=== PATIENT | male | born 1935 | race Caucasian/White ===

== ENCOUNTER 2018-01-17 10:00 | Emergency (ER) | payer MEDICARE, BC ==
[2018-01-17] MEDS ORDERED: SODIUM CHLORIDE 0.9% 1,000 ML IV STA (11:02)
[2018-01-17] MEDS ORDERED: MECLIZINE 12.5 MG TAB PO STA (11:02)
--- NOTE | 2018-01-17 11:06 | ED ---
Dizziness HPI - General Chief Complaint: Dizziness Stated Complaint: DIZZINESS, NEAR SYNCOPE Time Seen by Provider: 01/17/18 10:28 Source: patient, family, RN notes reviewed Mode of arrival: wheelchair Limitations: no limitations - History of Present Illness Initial Comments: This 82-year-old male with a prior history of dizziness in the past who states he had the onset this morning of feeling dizzy with some difficulty walking he states this happened when he would look up and down through his new bifocal glasses. He states it still occurs now even without his glasses on noted somewhat improved from earlier. He states that during the episode he felt chilled he also felt as if he was going to have a bowel movement or needed to. Right now he has of the symptoms he denies any fevers sweats vomiting diarrhea constipation palpitations focal weakness is upper or lower extremities. He denies any recent medicine change or recent illnesses. No other modifying factors MD Complaint: dizziness, lightheadedness, near syncope - Related Data Home Medications Medication Instructions Recorded Confirmed Lisinopril [Zestril] 1.25 mg PO DAILY 04/17/14 01/17/18 Omeprazole [PriLOSEC] 20 mg PO BID 04/17/14 01/17/18 Simvastatin [Zocor] 40 mg PO HS 04/17/14 01/17/18 Meloxicam [Mobic] 7.5 mg PO DAILY 01/17/18 01/17/18 Montelukast Sodium [Singulair] 10 mg PO DAILY 01/17/18 01/17/18 Tamsulosin HCl [Flomax] 0.4 mg PO BID 01/17/18 01/17/18 Previous Rx's Medication Instructions Recorded Meclizine [Antivert] 25 mg PO TID #20 tab 01/17/18 Allergies Allergy/AdvReac Type Severity Reaction Status Date / Time No Known Allergies Allergy Verified 01/17/18 11:27 Review of Systems ROS Statement: Those systems with pertinent positive or pertinent negative responses have been documented in the HPI. ROS Other: All systems not noted in ROS Statement are negative. Past Medical History Past Medical History: Asthma, Coronary Artery Disease (CAD), Diabetes Mellitus, GERD/Reflux, Hyperlipidemia, Hypertension, Osteoarthritis (OA), Prostate Disorder Additional Past Medical History / Comment(s): osteoarthritis History of Any Multi-Drug Resistant Organisms: None Reported Past Surgical History: Coronary Bypass/CABG, Heart Catheterization Additional Past Surgical History / Comment(s): CABG-3 vessels, pericaridal tissue heart valve, shelli. carpal tunnel repair Past Anesthesia/Blood Transfusion Reactions: No Reported Reaction Past Psychological History: No Psychological Hx Reported Smoking Status: Former smoker Past Alcohol Use History: None Reported Past Drug Use History: None Reported General Exam - General Exam Comments Initial Comments: This is a well-developed well-nourished awake alert oriented 3 male Limitations: no limitations General appearance: alert, in no apparent distress Head exam: Present: atraumatic, normocephalic, normal inspection Eye exam: Present: normal appearance, PERRL, EOMI. Absent: scleral icterus, conjunctival injection, periorbital swelling ENT exam: Present: normal exam, mucous membranes moist Neck exam: Present: normal inspection, full ROM, other (No stridor JVD or bruits ). Absent: tenderness, meningismus, lymphadenopathy Respiratory exam: Present: normal lung sounds bilaterally. Absent: respiratory distress, wheezes, rales, rhonchi, stridor Cardiovascular Exam: Present: regular rate, normal rhythm, normal heart sounds. Absent: systolic murmur, diastolic murmur, rubs, gallop, clicks GI/Abdominal exam: Present: soft, normal bowel sounds. Absent: distended, tenderness, guarding, rebound, rigid Extremities exam: Present: normal inspection, full ROM, normal capillary refill. Absent: tenderness, pedal edema, joint swelling, calf tenderness Back exam: Present: normal inspection Neurological exam: Present: alert, oriented X3, CN II-XII intact Psychiatric exam: Present: normal affect, normal mood Skin exam: Present: warm, dry, intact, normal color. Absent: rash Course Vital Signs 01/17/18 01/17/18 10:17 11:36 Temperature 97.4 F L Pulse Rate 87 Pulse Rate [ 67 Sitting] Pulse Rate [ 72 Standing] Pulse Rate [ 68 Supine] Respiratory 18 20 Rate Blood Pressure 150/67 Blood Pressure 153/76 [Sitting] Blood Pressure 152/76 [Standing] Blood Pressure 146/66 [Supine] O2 Sat by Pulse 98 Oximetry EKG Findings - EKG Results: EKG: interpreted by ERMD, sinus rhythm (Sinus rhythm first-degree AV block rate was 62. 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 Patient will be discharged he will be placed on a prescription for Antivert he was encouraged to increase his oral fluids follow-up with his doctor and return when necessary additionally he was cautioned about not driving today. - Lab Data Result diagrams: 01/17/18 11:59 01/17/18 11:59 Lab Results 01/17/18 01/17/18 01/17/18 Range/Units 11:59 11:59 11:59 WBC 8.2 (3.8-10.6) k/uL RBC 5.41 (4.30-5.90) m/uL Hgb 15.7 (13.0-17.5) gm/dL Hct 47.4 (39.0-53.0) % MCV 87.6 (80.0-100.0) fL MCH 29.0 (25.0-35.0) pg MCHC 33.2 (31.0-37.0) g/dL RDW 13.2 (11.5-15.5) % Plt Count 151 (150-450) k/uL Neutrophils % 79 % Lymphocytes % 13 % Monocytes % 6 % Eosinophils % 1 % Basophils % 0 % Neutrophils # 6.5 (1.3-7.7) k/uL Lymphocytes # 1.1 (1.0-4.8) k/uL Monocytes # 0.5 (0-1.0) k/uL Eosinophils # 0.1 (0-0.7) k/uL Basophils # 0.0 (0-0.2) k/uL Sodium 139 (137-145) mmol/L Potassium 4.3 (3.5-5.1) mmol/L Chloride 106 (98-107) mmol/L Carbon Dioxide 26 (22-30) mmol/L Anion Gap 7 mmol/L BUN 22 H (9-20) mg/dL Creatinine 0.92 (0.66-1.25) mg/dL Est GFR (CKD-EPI)AfAm 88 (>60 ml/min/1.73 sqM) Est GFR (CKD-EPI)NonAf 76 (>60 ml/min/1.73 sqM) Glucose 134 H (74-99) mg/dL Calcium 9.6 (8.4-10.2) mg/dL Magnesium 1.9 (1.6-2.3) mg/dL Total Bilirubin 0.6 (0.2-1.3) mg/dL AST 22 (17-59) U/L ALT 28 (21-72) U/L Alkaline Phosphatase 48 (38-126) U/L Total Creatine Kinase 89 (55-170) U/L CK-MB (CK-2) 1.8 (0.0-2.4) ng/mL CK-MB (CK-2) Rel Index 2.0 Troponin I <0.012 (0.000-0.034) ng/mL Total Protein 6.5 (6.3-8.2) g/dL Albumin 3.9 (3.5-5.0) g/dL Urine Color Urine Appearance (Clear) Urine pH (5.0-8.0) Ur Specific [place] (1.001-1.035) Urine Protein (Negative) Urine Glucose (UA) (Negative) Urine Ketones (Negative) Urine Blood (Negative) Urine Nitrite (Negative) Urine Bilirubin (Negative) Urine Urobilinogen (<2.0) mg/dL Ur Leukocyte Esterase (Negative) 01/17/18 Range/Units 12:35 WBC (3.8-10.6) k/uL RBC (4.30-5.90) m/uL Hgb (13.0-17.5) gm/dL Hct (39.0-53.0) % MCV (80.0-100.0) fL MCH (25.0-35.0) pg MCHC (31.0-37.0) g/dL RDW (11.5-15.5) % Plt Count (150-450) k/uL Neutrophils % % Lymphocytes % % Monocytes % % Eosinophils % % Basophils % % Neutrophils # (1.3-7.7) k/uL Lymphocytes # (1.0-4.8) k/uL Monocytes # (0-1.0) k/uL Eosinophils # (0-0.7) k/uL Basophils # (0-0.2) k/uL Sodium (137-145) mmol/L Potassium (3.5-5.1) mmol/L Chloride (98-107) mmol/L Carbon Dioxide (22-30) mmol/L Anion Gap mmol/L BUN (9-20) mg/dL Creatinine (0.66-1.25) mg/dL Est GFR (CKD-EPI)AfAm (>60 ml/min/1.73 sqM) Est GFR (CKD-EPI)NonAf (>60 ml/min/1.73 sqM) Glucose (74-99) mg/dL Calcium (8.4-10.2) mg/dL Magnesium (1.6-2.3) mg/dL Total Bilirubin (0.2-1.3) mg/dL AST (17-59) U/L ALT (21-72) U/L Alkaline Phosphatase (38-126) U/L Total Creatine Kinase (55-170) U/L CK-MB (CK-2) (0.0-2.4) ng/mL CK-MB (CK-2) Rel Index Troponin I (0.000-0.034) ng/mL Total Protein (6.3-8.2) g/dL Albumin (3.5-5.0) g/dL Urine Color Yellow Urine Appearance Clear (Clear) Urine pH 5.0 (5.0-8.0) Ur Specific [place] 1.015 (1.001-1.035) Urine Protein Negative (Negative) Urine Glucose (UA) Negative (Negative) Urine Ketones Trace H (Negative) Urine Blood Negative (Negative) Urine Nitrite Negative (Negative) Urine Bilirubin Negative (Negative) Urine Urobilinogen <2.0 (<2.0) mg/dL Ur Leukocyte Esterase Negative (Negative) - Radiology Data Radiology results: report reviewed (I did review the imaging and reports no acute findings.), image reviewed Disposition Clinical Impression: Benign paroxysmal positional vertigo, Dehydration Disposition: HOME SELF-CARE Condition: Good Instructions: Dizziness (ED), Benign Paroxysmal Positional Vertigo (ED), Dehydration (ED) Prescriptions: Meclizine [Antivert] 25 mg PO TID #20 tab Is patient prescribed a controlled substance at d/c from ED?: No Referrals: Alfredo Carbone MD [Primary Care Provider] - 1-2 days
[2018-01-17 12:17] LABS: Basophils % (A) 0 %; Eosinophils # (A) 0.1 k/uL (0-0.7); Eosinophils % (A) 1 %; HCT 47.4 % (39.0-53.0); HGB 15.7 gm/dL (13.0-17.5); Lymphocytes # (A) 1.1 k/uL (1.0-4.8); Lymphocytes % (A) 13 %; MCHC 33.2 g/dL (31.0-37.0); MCV 87.6 fL (80.0-100.0); Monocytes # (A) 0.5 k/uL (0-1.0); Monocytes % (A) 6 %; Neutrophils # (A) 6.5 k/uL (1.3-7.7); Neutrophils % (A) 79 %; Platelet Count 151 k/uL (150-450); RBC 5.41 m/uL (4.30-5.90); RDW 13.2 % (11.5-15.5); WBC 8.2 k/uL (3.8-10.6)
[2018-01-17 12:29] LABS: Albumin 3.9 g/dL (3.5-5.0); Calcium 9.6 mg/dL (8.4-10.2); Magnesium 1.9 mg/dL (1.6-2.3); Potassium 4.3 mmol/L (3.5-5.1); Total Bilirubin 0.6 mg/dL (0.2-1.3); Total Protein 6.5 g/dL (6.3-8.2)
[2018-01-17 12:42] LABS: Creatine Kinase 89 U/L (55-170)
[2018-01-17 12:56] LABS: Creatine Kinase MB 1.8 ng/mL (0.0-2.4); Troponin I <0.012 ng/mL (0.000-0.034)
[2018-01-17 13:03] LABS: Appearance,Urine Clear (Clear); Bilirubin,Urine Negative (Negative); Blood,Urine Negative (Negative); Color,Urine Yellow; Glucose,Urine (UA) Negative (Negative); Ketones,Urine Trace (Negative); Leukocyte Esterase,Urine Negative (Negative); Nitrite,Urine Negative (Negative); Protein,Urine Negative (Negative); Specific Gravity,Urine 1.015 (1.001-1.035); Urobilinogen,Urine <2.0 mg/dL (<2.0)
--- NOTE | 2018-01-17 13:18 | XR ---
EXAMINATION TYPE: XR chest 2V DATE OF EXAM: 01/17/2018 COMPARISON: 03/13/2010 INDICATION: Cough dizziness TECHNIQUE: Frontal and lateral views of the chest are obtained. FINDINGS: The heart size is normal. The pulmonary vasculature is normal. Minimal plate atelectasis above the left diaphragm. Some mild plate atelectasis may be in the right l ower lobe. Sternotomy wires from prior cardiac surgery are evident.. IMPRESSION: 1. Mild bibasilar atelectasis.
--- NOTE | 2018-01-17 13:25 | CT ---
EXAMINATION TYPE: CT brain wo con DATE OF EXAM: 01/17/2018 HISTORY: Dizziness, near syncope CT DLP: 1079.4 mGycm. Automated Exposure Control for Dose Reduction was Utilized. TECHNIQUE: CT scan of the head is performed without contrast. COMPARISON: None. FINDINGS: There is no acute intracranial hemorrhage or midline shift identified. There is diffuse v entricular and sulcal prominence consistent with diffuse age-related cerebral atrophy. There is low- attenuation in the periventricular white matter consistent with chronic small vessel ischemic change. The globes are intact and the visualized sinuses are clear. IMPRESSION: No acute intracranial hemorrhage or midline shift. There is mild to moderate diffuse ag e-related cerebral atrophy and chronic small vessel ischemic change noted.
[2018-01-17 13:48] VITALS: BP 133/71; PULSE 64; RESP 16; TEMP 97.8
== END 2018-01-17 13:53 | disposition home or self-care (01) ==
LOC: EC 10:00
DX: H81.10 Benign paroxysmal vertigo, unspecified ear (principal); E86.0 Dehydration; I25.10 Atherosclerotic heart disease of native coronary artery without angina pectoris; J45.909 Unspecified asthma, uncomplicated; K21.9 Gastro-esophageal reflux disease without esophagitis; E78.5 Hyperlipidemia, unspecified; I10 Essential (primary) hypertension; M19.90 Unspecified osteoarthritis, unspecified site; Z87.891 Personal history of nicotine dependence; Z95.1 Presence of aortocoronary bypass graft; Z95.2 Presence of prosthetic heart valve; Z98.890 Other specified postprocedural states; Z79.1 Long term (current) use of non-steroidal anti-inflammatories (NSAID); Z79.899 Other long term (current) drug therapy; N42.9 Disorder of prostate, unspecified
CPT/HCPCS: 36415; 70450; 71046; 80053; 81003; 82550; 82553; 83735; 84484; 85025; 93005; 96360; 99284

== ENCOUNTER 2019-11-22 15:35 | Inpatient (IN) | payer MEDICARE, BC ==
[2019-11-22] MEDS ORDERED: PIPERACILLIN-TAZOBACTAM 3.375 GM in SODIUM CHLORIDE 0.9% 100 ML IVPB STA (16:17)
[2019-11-22] MEDS ORDERED: SODIUM CHLORIDE 0.9% 1,000 ML IV STA (16:17)
[2019-11-22] MEDS ORDERED: VANCOMYCIN IV PER PHARMACY 1 EACH MISC MISCELLANE PRN (16:18)
[2019-11-22] MEDS ORDERED: VANCOMYCIN 1,500 MG in SODIUM CHLORIDE 0.9% 250 ML IVPB STA (16:22)
--- NOTE | 2019-11-22 16:38 | ED ---
General Adult HPI - General Chief complaint: Skin/Abscess/Foreign Body Stated complaint: R Foot Infection - Sent by PCP Time Seen by Provider: 11/22/19 15:39 Source: patient, RN notes reviewed, old records reviewed Mode of arrival: ambulatory Limitations: physical limitation - History of Present Illness Initial comments: 83-year-old male presenting with suspected infection in the right foot. Patient had been seen on outpatient basis approximately one week ago and was started on Keflex. He had a small superficial infection of the right second toe at that time. He states that despite these antibiotics he has had worsening swelling, erythema, warmth of the right second toe and right foot. Patient has had low- grade fevers at night. He states that this initially began as a small pimple on the top of the second toe. Patient had drained this and was soaking it in Epsom salts. Despite his treatment including oral antibiotics his swelling and erythema has significantly worsened. He was sent in today for IV antibiotics and further evaluation and treatment. - Related Data Home Medications Medication Instructions Recorded Confirmed Omeprazole [PriLOSEC] 20 mg PO BID 04/17/14 01/17/18 Simvastatin [Zocor] 40 mg PO HS 04/17/14 01/17/18 lisinopriL [Zestril] 1.25 mg PO DAILY 04/17/14 01/17/18 Meloxicam [Mobic] 7.5 mg PO DAILY 01/17/18 01/17/18 Montelukast Sodium [Singulair] 10 mg PO DAILY 01/17/18 01/17/18 Tamsulosin HCl [Flomax] 0.4 mg PO BID 01/17/18 01/17/18 Previous Rx's Medication Instructions Recorded Meclizine [Antivert] 25 mg PO TID #20 tab 01/17/18 Allergies Allergy/AdvReac Type Severity Reaction Status Date / Time No Known Allergies Allergy Verified 11/22/19 16:02 Review of Systems ROS Statement: Those systems with pertinent positive or pertinent negative responses have been documented in the HPI. ROS Other: All systems not noted in ROS Statement are negative. Past Medical History Past Medical History: Asthma, Coronary Artery Disease (CAD), Diabetes Mellitus, GERD/Reflux, Hyperlipidemia, Hypertension, Osteoarthritis (OA), Prostate Disorder Additional Past Medical History / Comment(s): osteoarthritis History of Any Multi-Drug Resistant Organisms: None Reported Past Surgical History: Coronary Bypass/CABG, Heart Catheterization Additional Past Surgical History / Comment(s): CABG-3 vessels, pericaridal tissue heart valve, shelli. carpal tunnel repair Past Anesthesia/Blood Transfusion Reactions: No Reported Reaction Past Psychological History: No Psychological Hx Reported Smoking Status: Never smoker Past Alcohol Use History: None Reported Past Drug Use History: None Reported General Exam Limitations: physical limitation General appearance: alert, in no apparent distress Head exam: Present: atraumatic, normocephalic Eye exam: Present: normal appearance, PERRL ENT exam: Present: normal exam Neck exam: Present: normal inspection. Absent: tenderness, meningismus Respiratory exam: Present: normal lung sounds bilaterally. Absent: respiratory distress, wheezes Cardiovascular Exam: Present: regular rate, normal rhythm GI/Abdominal exam: Present: soft. Absent: distended, tenderness, guarding Extremities exam: Present: other (Soft tissue swelling to the mid calf, there is erythema throughout the right foot extending from the second digit. There is skin breakdown and wet gangrene of the second digit.) Neurological exam: Present: alert, oriented X3 Psychiatric exam: Present: normal affect, normal mood Skin exam: Present: warm Course Vital Signs 11/22/19 15:59 Temperature 98.9 F Pulse Rate 84 Respiratory 20 Rate Blood Pressure 172/64 O2 Sat by Pulse 99 Oximetry Medical Decision Making - Medical Decision Making 83-year-old male with right foot infection extending from the second digit, magdalene lulitis, wet gangrene. X-ray negative for soft tissue gas, showed soft tissue swelling, ultrasound negative for DVT. Patient has a normal blood cell count but significant elevated CRP at 140. He started on broad-spectrum antibiotics he has been admitted to Dr. Carbone who is aware of the patient with both infectious disease and vascular surgery on consult. - Lab Data Result diagrams: 11/22/19 16:44 11/22/19 16:44 Lab Results 11/22/19 11/22/19 11/22/19 Range/Units 16:44 16:44 16:44 WBC 9.9 (3.8-10.6) k/uL RBC 5.11 (4.30-5.90) m/uL Hgb 15.5 (13.0-17.5) gm/dL Hct 46.3 (39.0-53.0) % MCV 90.6 (80.0-100.0) fL MCH 30.4 (25.0-35.0) pg MCHC 33.5 (31.0-37.0) g/dL RDW 12.9 (11.5-15.5) % Plt Count 191 (150-450) k/uL Neutrophils % 73 % Lymphocytes % 13 % Monocytes % 10 % Eosinophils % 2 % Basophils % 0 % Neutrophils # 7.2 (1.3-7.7) k/uL Lymphocytes # 1.3 (1.0-4.8) k/uL Monocytes # 1.0 (0-1.0) k/uL Eosinophils # 0.2 (0-0.7) k/uL Basophils # 0.0 (0-0.2) k/uL Sodium 138 (137-145) mmol/L Potassium 4.0 (3.5-5.1) mmol/L Chloride 103 (98-107) mmol/L Carbon Dioxide 27 (22-30) mmol/L Anion Gap 8 mmol/L BUN 21 H (9-20) mg/dL Creatinine 1.04 (0.66-1.25) mg/dL Est GFR (CKD-EPI)AfAm 76 (>60 ml/min/1.73 sqM) Est GFR (CKD-EPI)NonAf 66 (>60 ml/min/1.73 sqM) Glucose 132 H (74-99) mg/dL Plasma Lactic Acid Mike 1.0 (0.7-2.0) mmol/L Calcium 9.5 (8.4-10.2) mg/dL Total Bilirubin 0.6 (0.2-1.3) mg/dL AST 26 (17-59) U/L ALT 22 (4-49) U/L Alkaline Phosphatase 71 (38-126) U/L C-Reactive Protein 140.4 H (<10.0) mg/L Total Protein 6.5 (6.3-8.2) g/dL Albumin 3.7 (3.5-5.0) g/dL Disposition Clinical Impression: Cellulitis, Wet gangrene Disposition: ADMITTED IP TO [facility] Condition: Stable Is patient prescribed a controlled substance at d/c from ED?: No Referrals: Alfredo Carbone MD [Primary Care Provider] - 1-2 days Decision to Admit Reason: Admit from EC Decision Date: 11/22/19 Decision Time: 18:13
[2019-11-22 16:54] LABS: Basophils % (A) 0 %; Eosinophils # (A) 0.2 k/uL (0-0.7); Eosinophils % (A) 2 %; HCT 46.3 % (39.0-53.0); HGB 15.5 gm/dL (13.0-17.5); Lymphocytes # (A) 1.3 k/uL (1.0-4.8); Lymphocytes % (A) 13 %; MCH 30.4 pg (25.0-35.0); MCHC 33.5 g/dL (31.0-37.0); MCV 90.6 fL (80.0-100.0); Mean Platelet Volume 9.1; Monocytes % (A) 10 %; Neutrophils # (A) 7.2 k/uL (1.3-7.7); Neutrophils % (A) 73 %; Platelet Count 191 k/uL (150-450); RBC 5.11 m/uL (4.30-5.90); RDW 12.9 % (11.5-15.5); WBC 9.9 k/uL (3.8-10.6)
[2019-11-22 17:06] LABS: Albumin 3.7 g/dL (3.5-5.0); Calcium 9.5 mg/dL (8.4-10.2); Total Bilirubin 0.6 mg/dL (0.2-1.3); Total Protein 6.5 g/dL (6.3-8.2)
[2019-11-22 17:18] LABS: C Reactive Protein 140.4 mg/L (<10.0)
--- NOTE | 2019-11-22 17:21 | XR ---
EXAMINATION TYPE: XR foot complete RT DATE OF EXAM: 11/22/2019 COMPARISON: NONE HISTORY: Second digit infection TECHNIQUE: 3 views FINDINGS: There is soft tissue swelling of the forefoot. There is narrowing and spurring at the first MP joint. I see no fracture nor dislocation. There is no focal bone destruction. There is extensive vascular calcification. IMPRESSION: Soft tissue swelling. 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 No definite sign of osteomyel itis.
[2019-11-22] MEDS ORDERED: ACETAMINOPHEN TAB 325 MG TAB PO PRN (17:34)
[2019-11-22] MEDS ORDERED: NALOXONE 0.4 MG/ML 1 ML VIAL IV PRN (17:34)
--- NOTE | 2019-11-22 18:01 | US ---
EXAMINATION TYPE: US venous doppler duplex LE RT DATE OF EXAM: 11/22/2019 5:53 PM COMPARISON: NONE CLINICAL HISTORY: dvt. R/O DVT. No hx of DVT. Patient unsure if he takes a blood thinner. SIDE PERFORMED: Right TECHNIQUE: The lower extremity deep venous system is examined utilizing real time linear array sonog scott with graded compression, doppler sonography and color-flow sonography. VESSELS IMAGED: External Iliac Vein (EIV) Common Femoral Vein Deep Femoral Vein Greater Saphenous Vein * Femoral Vein Popliteal Vein Small Saphenous Vein * Proximal Calf Veins (* superficial vessels) Right Leg: No evidence of DVT in veins imaged at this time from prox calf veins to EIV. Hypoechoic a stevo seen within right groin measurin.4 x 2.4 x 1.0 cm. IMPRESSION: No evidence of deep vein thrombosis in the right leg. Right inguinal lymph node is noted
[2019-11-22] MEDS: TAMSULOSIN 0.4 MG CAP.ER.24H PO SCH (21:32)
[2019-11-22] MEDS: PIPERACILLIN-TAZOBACTAM 3.375 GM in SODIUM CHLORIDE 0.9% 100 ML IVPB SCH (23:44)
[2019-11-23] MEDS: PIPERACILLIN-TAZOBACTAM 3.375 GM in SODIUM CHLORIDE 0.9% 100 ML IVPB SCH ×2 (08:37→16:58)
[2019-11-23] MEDS: VANCOMYCIN 1,500 MG in SODIUM CHLORIDE 0.9% 250 ML IVPB SCH ×2 (08:37→23:04)
[2019-11-23] MEDS: PANTOPRAZOLE 40 MG TABLET PO SCH (08:37)
[2019-11-23] MEDS: TAMSULOSIN 0.4 MG CAP.ER.24H PO SCH ×2 (08:38→19:54)
[2019-11-23] MEDS: MONTELUKAST 10 MG TAB PO SCH (08:38)
--- NOTE | 2019-11-23 09:40 | P.GSCN ---
<Dana Skaggs - Last Filed: 11/23/19 09:31> History of Present Illness Consult date: 11/23/19 Reason for Consult: Cellulitis of the right foot History of present illness: 83-year-old male presenting with suspected infection in the right foot. Patient had been seen on outpatient basis approximately one week ago and was started on Keflex. He had a small superficial infection of the right second toe at that time. He states that despite these antibiotics he has had worsening swelling, erythema, warmth of the right second toe and right foot. Patient has had low- grade fevers at night. He states that this initially began as a small pimple on the top of the second toe. Patient had drained this and was soaking it in Epsom salts. Despite his treatment including oral antibiotics his swelling and erythema has significantly worsened. He was sent in for IV antibiotics and further evaluation and treatment. His past medical history includes asthma, coronary artery disease, diabetes mellitus, GERD, hyperlipidemia, hypertension, osteoarthritis and prostate disorder. Admission labs WBC 9.9, hemoglobin 15.5, hematocrit 46.3, platelets 191 BUN 21, creatinine 1.04, C-reactive protein 140.4. X-ray of the right foot showed soft tissue swelling. 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 No definite sign of osteomyelitis. Venous Doppler of the right lower extremity was negative for DVT, did show a right inguinal lymph node. Review of Systems 14 point review systems was completed, all pertinent positives and negatives as stated in the HPI. Past Medical History Past Medical History: Asthma, Coronary Artery Disease (CAD), Diabetes Mellitus, GERD/Reflux, Hyperlipidemia, Hypertension, Osteoarthritis (OA), Prostate Disorder Additional Past Medical History / Comment(s): osteoarthritis History of Any Multi-Drug Resistant Organisms: None Reported Past Surgical History: Coronary Bypass/CABG, Heart Catheterization Additional Past Surgical History / Comment(s): CABG-3 vessels, pericaridal tissue heart valve, shelli. carpal tunnel repair Past Anesthesia/Blood Transfusion Reactions: No Reported Reaction Past Psychological History: No Psychological Hx Reported Smoking Status: Never smoker Past Alcohol Use History: None Reported Past Drug Use History: None Reported Medications and Allergies Home Medications Medication Instructions Recorded Confirmed Type Omeprazole [PriLOSEC] 20 mg PO BID 04/17/14 11/22/19 History Simvastatin [Zocor] 40 mg PO HS 04/17/14 11/22/19 History lisinopriL [Zestril] 1.25 mg PO DAILY 04/17/14 11/22/19 History Meloxicam [Mobic] 7.5 mg PO BID 01/17/18 11/22/19 History Tamsulosin HCl [Flomax] 0.4 mg PO BID 01/17/18 11/22/19 History Cholecalciferol [Vitamin D3 (25 1,000 unit PO DAILY 11/22/19 11/22/19 History Mcg = 1000 Iu)] Montelukast [Singulair] 10 mg PO DAILY 11/22/19 11/22/19 History Allergies Allergy/AdvReac Type Severity Reaction Status Date / Time No Known Allergies Allergy Verified 11/22/19 18:21 Surgical - Exam Vital Signs Temp Pulse Resp BP Pulse Ox 98.9 F 84 20 172/64 99 11/22/19 15:59 11/22/19 15:59 11/22/19 15:59 11/22/19 15:59 11/22/19 15:59 General appearance: The patient is alert, oriented, in no acute distress. HET: Head is normocephalic and atraumatic. Pupils are equal and reactive. Oropharynx is clear without lesions. Neck: Supple without lymphadenopathy. Trachea midline. Heart: S1 S2. Regular rate and rhythm. Lungs: No crackles or wheezes are heard. Abdomen: Soft, nontender, nondistended with bowel sounds. Extremities: Bilateral palpable femoral and DP pulses, however right was faint likely due to swelling. Palpable left PT pulse, with no edema or erythema. Positive Doppler signals bilateral popliteal, right PT and DP. Right second toe with swelling, erythema, and with gangrenous changes along dorsal, medial and lateral aspects.. Significant erythema and swelling on dorsal side up to mid foot. Patient is able to move bilateral lower extremities. Neurological: No focal deficits. Strength and sensation are grossly intact. Results X-ray of the right foot shows soft tissue swelling. 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 No definite sign of osteomyelitis Venous Doppler of the right lower extremity was negative for DVT. There was a right inguinal lymph node. - Labs 11/22/19 16:44 11/22/19 16:44 Abnormal Lab Results - Last 24 Hours (Table) 11/22/19 Range/Units 16:44 BUN 21 H (9-20) mg/dL Glucose 132 H (74-99) mg/dL C-Reactive Protein 140.4 H (<10.0) mg/L Diabetes panel 11/22/19 Range/Units 16:44 Sodium 138 (137-145) mmol/L Potassium 4.0 (3.5-5.1) mmol/L Chloride 103 (98-107) mmol/L Carbon Dioxide 27 (22-30) mmol/L BUN 21 H (9-20) mg/dL Creatinine 1.04 (0.66-1.25) mg/dL Glucose 132 H (74-99) mg/dL Calcium 9.5 (8.4-10.2) mg/dL AST 26 (17-59) U/L ALT 22 (4-49) U/L Alkaline Phosphatase 71 (38-126) U/L Total Protein 6.5 (6.3-8.2) g/dL Albumin 3.7 (3.5-5.0) g/dL Calcium panel 11/22/19 Range/Units 16:44 Calcium 9.5 (8.4-10.2) mg/dL Albumin 3.7 (3.5-5.0) g/dL Pituitary panel 11/22/19 Range/Units 16:44 Sodium 138 (137-145) mmol/L Potassium 4.0 (3.5-5.1) mmol/L Chloride 103 (98-107) mmol/L Carbon Dioxide 27 (22-30) mmol/L BUN 21 H (9-20) mg/dL Creatinine 1.04 (0.66-1.25) mg/dL Glucose 132 H (74-99) mg/dL Calcium 9.5 (8.4-10.2) mg/dL Adrenal panel 11/22/19 Range/Units 16:44 Sodium 138 (137-145) mmol/L Potassium 4.0 (3.5-5.1) mmol/L Chloride 103 (98-107) mmol/L Carbon Dioxide 27 (22-30) mmol/L BUN 21 H (9-20) mg/dL Creatinine 1.04 (0.66-1.25) mg/dL Glucose 132 H (74-99) mg/dL Calcium 9.5 (8.4-10.2) mg/dL Total Bilirubin 0.6 (0.2-1.3) mg/dL AST 26 (17-59) U/L ALT 22 (4-49) U/L Alkaline Phosphatase 71 (38-126) U/L Total Protein 6.5 (6.3-8.2) g/dL Albumin 3.7 (3.5-5.0) g/dL Assessment and Plan Assessment: 1. Cellulitis of the right foot 2. Right second toe wound 3. Pain in the right foot 4. Diabetes mellitus 5. Coronary artery disease 6. Hypertension 7. Hyperlipidemia Plan: Continue with IV antibiotics per recommendation of infectious disease. Arterial Doppler study ordered. Dr. Kumar to further evaluate patient. Further recommendations to follow. Thank you for this kind referral and the opportunity to participate in the care of your patient. This consultation was discussed with Dr. Kumar. The impression and plan of care have been directed as dictated. <Kenneth Morales - Last Filed: 11/23/19 17:54> History of Present Illness History of present illness: The patient has a palpable femoral popliteal pulses on the right. Modest edema of the right foot is identified. Cellulitic reaction is noted along the dorsum of the foot. Unstageable skin slough is identified on the second toe of the right foot. The webspaces themselves are clean. There is no evidence of deep space abscess. Arterial Doppler demonstrates noncompressibility of vessels which leaves pressures unreliable. Pulse volume recording waveforms however demonstrate reasonably good flow along the entirety of the right lower extremity. Subjectively the patient indicates that the edema and erythema are subsiding with the current therapy. Recommendation: #1. I agree with currently instituted therapy including IV antibiotics and local wound care. #2. If the infectious process does not go on to complete resolution the patient would most likely benefit from a catheter angiogram with an eye toward percutaneous revascularization of the tibial vessels should this be possible based on the results of the angiogram. Alternatively the patient may be a good candidate for a lower extremity bypass, again dependent on the results of the angiogram. This further workup can be performed in the outpatient setting given the patient's objective indication of improvement. #3. I would like to follow the patient in the office as an outpatient. Surgical - Exam Osteopathic Statement: *. No significant issues noted on an osteopathic structural exam other than those noted in the History and Physical/Consult. Vital Signs Temp Pulse Resp BP Pulse Ox 98.9 F 84 20 172/64 99 10/15/20 15:59 11/22/19 15:59 11/22/19 15:59 11/22/19 15:59 11/22/19 15:59 Results - Labs 11/22/19 16:44 11/22/19 16:44
[2019-11-23] MEDS ORDERED: SODIUM HYPOCHLORITE 0.25% 480 ML BOT MISCELLANE SCH (15:45)
--- NOTE | 2019-11-23 15:49 | P.HPIM ---
History of Present Illness H&P Date: 11/23/19 Chief Complaint: Worsening Right foot cellulitis with second digit infection This is a pleasant 84-year-old gentleman with past medical history of asthma, CAD, CABG diabetes mellitus, gastroesophageal reflux disease, hypertension, hyperlipidemia, osteoarthritis presented to the ER with worsening right foot pain, cellulitis and second digit infection, low-grade fevers. Reports second digit initially started with a pimple appearance on the top of toe. Patient was started on oral Keflex approximately one week ago by PCP. He also attempted soaking foot with Epsom salts, but his extremity erythema/edema worsened. Patient was referred to ER . Antibiotics initiated. ID consulted. Evaluated by vascular surgery with arterial Doppler ordered. Afebrile, normal WBC. Hem atology unremarkable. Chemistry unremarkable with the exception of BUN 21, creatinine 1.4. Glucose 132. Elevated C-reactive protein,140.4. Foot x-ray reported soft tissue swelling, osteoarthritis of the first MP joint, no definite signs of osteomyelitis. Venous Doppler reported no DVT of the right leg, right inguinal lymph node noted-hyper echoic area within right groin measuring 3.4 x 2.4 x 1 cm. Review of Systems Constitutional: Denied any fatigue , mild nighttime fevers. Cardio vascular: denied any chest pain, palpitations Gastrointestinal denied any nausea vomiting Pulmonary: Denied any shortness of breath cough Neurologic denied any new focal deficits ROS Statement: Those systems with pertinent positive or pertinent negative responses have been documented in the HPI. ROS Other: All systems not noted in ROS Statement are negative. Past Medical History Past Medical History: Asthma, Coronary Artery Disease (CAD), Diabetes Mellitus, GERD/Reflux, Hyperlipidemia, Hypertension, Osteoarthritis (OA), Prostate Disorder Additional Past Medical History / Comment(s): osteoarthritis History of Any Multi-Drug Resistant Organisms: None Reported Past Surgical History: Coronary Bypass/CABG, Heart Catheterization Additional Past Surgical History / Comment(s): CABG-3 vessels, pericaridal tissue heart valve, shelli. carpal tunnel repair Past Anesthesia/Blood Transfusion Reactions: No Reported Reaction Past Psychological History: No Psychological Hx Reported Smoking Status: Never smoker Past Alcohol Use History: None Reported Past Drug Use History: None Reported Medications and Allergies Home Medications Medication Instructions Recorded Confirmed Type Omeprazole [PriLOSEC] 20 mg PO BID 04/17/14 11/22/19 History Simvastatin [Zocor] 40 mg PO HS 04/17/14 11/22/19 History lisinopriL [Zestril] 1.25 mg PO DAILY 04/17/14 11/22/19 History Meloxicam [Mobic] 7.5 mg PO BID 01/17/18 11/22/19 History Tamsulosin HCl [Flomax] 0.4 mg PO BID 01/17/18 11/22/19 History Cholecalciferol [Vitamin D3 (25 1,000 unit PO DAILY 11/22/19 11/22/19 History Mcg = 1000 Iu)] Montelukast [Singulair] 10 mg PO DAILY 11/22/19 11/22/19 History Allergies Allergy/AdvReac Type Severity Reaction Status Date / Time No Known Allergies Allergy Verified 11/22/19 18:21 Physical Exam Vitals: Vital Signs Temp Pulse Pulse Resp BP BP BP 11/23/19 05:00 97.8 F 61 18 158/70 11/23/19 00:10 16 11/22/19 19:59 98.3 F 80 16 159/65 11/22/19 19:20 16 11/22/19 19:00 98.9 F 72 18 150/78 11/22/19 18:02 72 18 150/78 11/22/19 17:02 18 11/22/19 15:59 98.9 F 84 20 172/64 Pulse Ox 11/23/19 05:00 96 11/23/19 00:10 11/22/19 19:59 95 11/22/19 19:20 11/22/19 19:00 98 11/22/19 18:02 98 11/22/19 17:02 97 11/22/19 15:59 99 Intake and Output 11/22/19 11/23/19 11/23/19 22:59 06:59 14:59 Intake Total 260 360 Balance 260 360 Intake: Intake, IV Titration 260 360 Amount Piperacillin-Tazobactam 3 100 .375 gm In Sodium Chloride 0.9% 100 ml @ 25 mls/hr IVPB Q8HR N[facility] Rx# :[id number] Sodium Chloride 0.9% 1, 260 260 000 ml @ 130 mls/hr IV . Q7H42M STA Rx#:[id number] Other: Voiding Method Toilet Toilet Urinal Urinal # Voids 1 Weight 81.647 kg PHYSICAL EXAM: VITAL SIGNS: As above GENERAL: Sitting up in bed, no acute distress HEENT: Conjunctivae normal. eyes normal. NECK: No JVD. No thyroid enlargement. No LNs CARDIOVASCULAR: S1, S2 regular. No murmur RESPIRATION: Breath sounds diminished in the bases. No rhonchi or crackles. No bronchial breathing. ABDOMEN: Soft, nontender . No guarding. no masses palpable. Positive Bowel sounds. EXTREMITIES: Right lower leg to dorsal mid-foot edema, erythema, edema with second digit gangrenous/blackened changes. Positive faint palpable DP. PSYCHIATRY: Alert and oriented X3, mood and affect normal. NERVOUS SYSTEM: Cranial N 2-12 grossly normal. Moves all 4 limbs. Diffuse weakness No focal deficits. Strength and sensation grossly intact.. Skin: Warm and dry, no rash Lymphatic system. No LN neck axilla. Results CBC & Chem 7: 11/22/19 16:44 11/22/19 16:44 Labs: Abnormal Lab Results - Last 24 Hours (Table) 11/22/19 Range/Units 16:44 BUN 21 H (9-20) mg/dL Glucose 132 H (74-99) mg/dL C-Reactive Protein 140.4 H (<10.0) mg/L Thrombosis Risk Factor Assmnt - Choose All That Apply Any of the Below Risk Factors Present?: Yes Each Factor Represents 1 point: Obesity (BMI >25), Swollen legs (current) Other Risk Factors: Yes Each Risk Factor Represents 3 Points: Age 75 years or older Other congenital or acquired thrombophilia - If yes, enter type in comment: No Thrombosis Risk Factor Assessment Total Risk Factor Score: 5 Thrombosis Risk Factor Assessment Level: High Risk Assessment and Plan Assessment: Cellulitis of right foot with second digit infection, failed outpatient treatment Diabetes mellitus CAD, history of CABG Hypertension hyperlipidemia Chronic intermittent asthma, stable Plan: Continue on current medication regime ,monitoring and symptomatic treatment. Wound care as ordered with Dakin's half-strength wash, Silvadene dressing. Elevated affected extremity .IV antibiotics as per infectious disease. Arterial Doppler pending. Follow closely with vascular surgery and ID. The impression and plan of care has been dictated as directed. : I performed a history and examination of this patient, discussed the same with the dictator. I agree with the dictator's note ,documented as a scribe. Any additional findings or plans will be noted.
[2019-11-23] MEDS: SODIUM HYPOCHLORITE 0.25% 480 ML BOT MISCELLANE SCH (17:55)
--- NOTE | 2019-11-23 23:51 | P.CONS ---
History of Present Illness - Reason for Consult Consult date: 11/23/19 Right foot infection Requesting physician: Alfredo Carbone - Chief Complaint Right foot swelling and redness x 1 week - History of Present Illness Patient is 83 year old male presenting to the hospital yesterday afternoon for evaluation of right foot infection apparently the patient noticed to have right second toe was swollen and red without any history of any trauma patient apparently has been evaluated by his primary care physician has been treated with oral Keflex without any improvement patient did have worsening swelling redness and some discussion of his right second toe patient did have mild aching pain to the area especially when he walks on it with intensity about 4 out of 10 and no radiation subsequently noticed swelling redness extending to the posterior aspect of his right foot that concern him and the patient presented to the hospital on arrival to the ER, patient was afebrile did have a normal white count with elevated CRP patient did have x-rays of the foot with tissue soft tissue swelling no definite signs of osteomyelitis patient was started on vancomycin and Zosyn infectious disease was consulted for further management of antibiotic therapy Review of Systems Positive point has been mentioned in the HPI rest of the systems are negative Past Medical History Past Medical History: Asthma, Coronary Artery Disease (CAD), Diabetes Mellitus, GERD/Reflux, Hyperlipidemia, Hypertension, Osteoarthritis (OA), Prostate Disorder Additional Past Medical History / Comment(s): osteoarthritis History of Any Multi-Drug Resistant Organisms: None Reported Past Surgical History: Coronary Bypass/CABG, Heart Catheterization Additional Past Surgical History / Comment(s): CABG-3 vessels, pericaridal tissue heart valve, shelli. carpal tunnel repair Past Anesthesia/Blood Transfusion Reactions: No Reported Reaction Past Psychological History: No Psychological Hx Reported Smoking Status: Never smoker Past Alcohol Use History: None Reported Past Drug Use History: None Reported Medications and Allergies Home Medications Medication Instructions Recorded Confirmed Type Omeprazole [PriLOSEC] 20 mg PO BID 04/17/14 11/22/19 History Simvastatin [Zocor] 40 mg PO HS 04/17/14 11/22/19 History lisinopriL [Zestril] 1.25 mg PO DAILY 04/17/14 11/22/19 History Meloxicam [Mobic] 7.5 mg PO BID 01/17/18 11/22/19 History Tamsulosin HCl [Flomax] 0.4 mg PO BID 01/17/18 11/22/19 History Cholecalciferol [Vitamin D3 (25 1,000 unit PO DAILY 11/22/19 11/22/19 History Mcg = 1000 Iu)] Montelukast [Singulair] 10 mg PO DAILY 11/22/19 11/22/19 History Allergies Allergy/AdvReac Type Severity Reaction Status Date / Time No Known Allergies Allergy Verified 11/22/19 18:21 Physical Exam Vitals: Vital Signs Temp Pulse Pulse Resp BP BP BP 11/23/19 12:51 98.2 F 61 16 121/62 11/23/19 05:00 97.8 F 61 18 158/70 11/23/19 00:10 16 11/22/19 19:59 98.3 F 80 16 159/65 11/22/19 19:20 16 11/22/19 19:00 98.9 F 72 18 150/78 11/22/19 18:02 72 18 150/78 11/22/19 17:02 18 11/22/19 15:59 98.9 F 84 20 172/64 Pulse Ox 11/23/19 12:51 96 11/23/19 05:00 96 11/23/19 00:10 11/22/19 19:59 95 11/22/19 19:20 11/22/19 19:00 98 11/22/19 18:02 98 11/22/19 17:02 97 11/22/19 15:59 99 Intake and Output 11/22/19 11/23/19 11/23/19 22:59 06:59 14:59 Intake Total 260 360 Balance 260 360 Intake: Intake, IV Titration 260 360 Amount Piperacillin-Tazobactam 3 100 .375 gm In Sodium Chloride 0.9% 100 ml @ 25 mls/hr IVPB Q8HR [facility] Rx# :[id number] Sodium Chloride 0.9% 1, 260 260 000 ml @ 130 mls/hr IV . Q7H42M [facility]A Rx#:[id number] Other: Voiding Method Toilet Toilet Urinal Urinal # Voids 1 Weight 81.647 kg GENERAL DESCRIPTION: An elderly male lying in bed, no distress. No tachypnea or accessory muscle of respiration use. HEENT: Shows Pallor , no scleral icterus. Oral mucous membrane is dry. No pharyngeal erythema or thrush NECK: Trachea central, no thyromegaly. LUNGS: Unlabored breathing. Clear to auscultation anteriorly. No wheeze or crackle. HEART: S1, S2, regular rate and rhythm. No loud murmur ABDOMEN: Soft, no tenderness , guarding or rigidity, no organomegaly EXTREMITIES: Right foot second toe significant swollen and red and discolored with some redness on the dorsal aspect of the right foot. SKIN: No rash, no masses palpable. NEUROLOGICAL: The patient is awake, alert, oriented x3, mood and affect normal. Results CBC & Chem 7: 11/22/19 16:44 11/22/19 16:44 Labs: Abnormal Lab Results - Last 24 Hours (Table) 11/22/19 Range/Units 16:44 BUN 21 H (9-20) mg/dL Glucose 132 H (74-99) mg/dL C-Reactive Protein 140.4 H (<10.0) mg/L Assessment and Plan Assessment: 1- patient with right foot infection and especially involving his right second toe with secondary cellulitis of the right foot failing outpatient oral Keflex therapy features are more of a wet gangrene and may need extensive debridement versus amputation of his right second toe for which vascular surgery has been consulted (1) Cellulitis of right foot Current Visit: Yes Status: Acute Code(s): L03.115 - CELLULITIS OF RIGHT LOWER LIMB SNOMED Code(s): 771430316 (2) Wet gangrene Current Visit: Yes Status: Acute Code(s): I96 - GANGRENE, NOT ELSEWHERE CLASSIFIED SNOMED Code(s): 631957403 Plan: 1-Vancomycin pharmacy to dose target trough of 15 while watching kidney function and Vanco trough closely 2-discontinue Zosyn and Unasyn 3 g every 6 hours We will follow on clinical condition and cultures to further adjust medication if needed Thank you for this consultation will follow this patient with you Time with Patient: Greater than 30
[2019-11-24] MEDS: AMPICILLIN-SULBACTAM 3 GM in SODIUM CHLORIDE 0.9% 100 ML IVPB SCH ×5 (00:17→23:34)
[2019-11-24 07:04] LABS: Basophils % (A) 0 %; Eosinophils # (A) 0.4 k/uL (0-0.7); Eosinophils % (A) 4 %; HCT 43.1 % (39.0-53.0); HGB 13.9 gm/dL (13.0-17.5); Lymphocytes # (A) 1.6 k/uL (1.0-4.8); Lymphocytes % (A) 18 %; MCH 29.3 pg (25.0-35.0); MCHC 32.2 g/dL (31.0-37.0); Mean Platelet Volume 8.7; Monocytes # (A) 0.9 k/uL (0-1.0); Monocytes % (A) 10 %; Neutrophils # (A) 5.7 k/uL (1.3-7.7); Neutrophils % (A) 65 %; Platelet Count 214 k/uL (150-450); RBC 4.74 m/uL (4.30-5.90); RDW 13.1 % (11.5-15.5); WBC 8.7 k/uL (3.8-10.6)
[2019-11-24 09:08] LABS: African American GFR (CKD) 89.3 (60.0-200.0); BUN/Creat Ratio 15.56 Ratio (12.00-20.00); Calcium 8.9 mg/dL (8.7-10.3); Non-African American GFR(CKD) 77.1 (60.0-200.0); Potassium 4.2 mmol/L (3.5-5.5)
[2019-11-24] MEDS: MONTELUKAST 10 MG TAB PO SCH (09:44)
[2019-11-24] MEDS: PANTOPRAZOLE 40 MG TABLET PO SCH (09:44)
[2019-11-24] MEDS: TAMSULOSIN 0.4 MG CAP.ER.24H PO SCH ×2 (09:44→20:19)
[2019-11-24] MEDS: SODIUM HYPOCHLORITE 0.25% 480 ML BOT MISCELLANE SCH (09:54)
--- NOTE | 2019-11-24 10:06 | P.PN ---
Subjective This is a pleasant 84-year-old gentleman with past medical history of asthma, CAD, CABG diabetes mellitus, gastroesophageal reflux disease, hypertension, hyperlipidemia, osteoarthritis presented to the ER with worsening right foot pain, cellulitis and second digit infection, low-grade fevers. Reports second digit initially started with a pimple appearance on the top of toe. Patient was started on oral Keflex approximately one week ago by PCP. He also attempted soaking foot with Epsom salts, but his extremity erythema/edema worsened. Patient was referred to ER . Antibiotics initiated. ID consulted. Evaluated by vascular surgery with arterial Doppler ordered. Afebrile, normal WBC. Hematology unremarkable. Chemistry unremarkable with the exception of BUN 21, creatinine 1.4. Glucose 132. Elevated C-reactive protein,140.4. Foot x-ray reported soft tissue swelling, osteoarthritis of the first MP joint, no definite signs of osteomyelitis. Venous Doppler reported no DVT of the right leg, right inguinal lymph node noted-hyper echoic area within right groin measuring 3.4 x 2.4 x 1 cm. 11/24/2019: Basilar surgery seen the patient and is not planning any debridement. Arterial studies showed good circulation up to the level of the ankle. The erythema in his toe and dorsal foot are improved. Infectious disease has seen him and he remains on vancomycin, and Unasyn.. He denies any chest pains, pressures, or shortness of breath today. He is tolerating his diet. He denies any nausea or vomiting. He has not had a bowel movement past 24 hours. Blood cultures remain negative. He has local wound care with Silvadene cream, Curlex dressing and Juan wrap for edema control. Dakin solution to clean the wound and dressing changes. Objective - Vital Signs Vital signs: Vital Signs Temp 97.7 F 11/24/19 05:48 Pulse 63 11/24/19 05:48 Resp 18 11/24/19 05:48 BP 133/64 11/24/19 05:48 Pulse Ox 94 L 11/24/19 05:48 Intake & Output 11/23/19 11/24/19 11/24/19 18:59 06:59 18:59 Intake Total 890 480 Output Total 1700 Balance -810 480 Intake: Intake, IV Titration 490 Amount Ampicillin-Sulbactam 3 gm 200 In Sodium Chloride 0.9% 100 ml @ 200 mls/hr IVPB Q6HR [facility] Rx#:[id number] Sodium Chloride 0.9% 1, 40 000 ml @ 130 mls/hr IV . Q7H42M [facility] Rx#:[id number] Vancomycin 1,500 mg In 250 Sodium Chloride 0.9% 250 ml @ 125 mls/hr IVPB Q16H [facility] Rx#:[id number] Oral 400 480 Output: Urine 1700 Other: Voiding Method Toilet Toilet Urinal Urinal # Voids 3 - Exam GENERAL: Sitting up in bed, no acute distress HEENT: Conjunctivae normal. eyes normal. NECK: No JVD. No thyroid enlargement. No LNs CARDIOVASCULAR: S1, S2 regular. No murmur RESPIRATION: Breath sounds diminished in the bases. No rhonchi or crackles. No bronchial breathing. ABDOMEN: Soft, nontender . No guarding. no masses palpable. Positive Bowel sounds. EXTREMITIES: Right lower leg to dorsal mid-foot edema, erythema, edema with second digit gangrenous/blackened changes. Positive faint palpable DP. The overall erythema is improved to the foot. PSYCHIATRY: Alert and oriented X3, mood and affect normal. NERVOUS SYSTEM: Cranial N 2-12 grossly normal. Moves all 4 limbs. Diffuse weakness No focal deficits. Strength and sensation grossly intact.. Skin: Warm and dry, no rash Lymphatic system. No LN neck axilla. - Labs CBC & Chem 7: 11/24/19 06:41 11/24/19 06:41 Labs: Abnormal Lab Results - Last 24 Hours (Table) 11/24/19 Range/Units 06:41 Glucose 122 H (70-110) mg/dL Microbiology - Last 24 Hours (Table) 11/22/19 16:44 Blood Culture - Preliminary Blood No Growth after 24 hours Assessment and Plan (1) Essential (primary) hypertension Current Visit: Yes Status: Acute Code(s): I10 - ESSENTIAL (PRIMARY) HYPERTENSION SNOMED Code(s): 34498136 (2) BPH (benign prostatic hyperplasia) Current Visit: Yes Status: Acute Code(s): N40.0 - BENIGN PROSTATIC HYPERPLASIA WITHOUT LOWER URINRY TRACT SYMP SNOMED Code(s): 817618637 (3) Type 2 diabetes mellitus without complications Current Visit: Yes Status: Acute Code(s): E11.9 - TYPE 2 DIABETES MELLITUS WITHOUT COMPLICATIONS SNOMED Code(s): 883004590 (4) Cellulitis of right foot Current Visit: Yes Status: Acute Code(s): L03.115 - CELLULITIS OF RIGHT LOWER LIMB SNOMED Code(s): 828129350 (5) Wet gangrene Current Visit: Yes Status: Acute Code(s): I96 - GANGRENE, NOT ELSEWHERE CLASSIFIED SNOMED Code(s): 707215612 (6) GERD (gastroesophageal reflux disease) Current Visit: No Status: Acute Code(s): K21.9 - GASTRO-ESOPHAGEAL REFLUX DISEASE WITHOUT ESOPHAGITIS SNOMED Code(s): 800209913 Plan: Continue on current medication regime ,monitoring and symptomatic treatment. Wound care as ordered with Dakin's half-strength wash, Silvadene dressing. Elevated affected extremity .IV antibiotics as per infectious disease. Arterial Doppler hard copy pending. Follow closely with vascular surgery and ID. We'll repeat labs in am. Reevaluated next 24 hours.
[2019-11-24] MEDS: VANCOMYCIN 1,500 MG in SODIUM CHLORIDE 0.9% 250 ML IVPB SCH (16:47)
--- NOTE | 2019-11-24 23:57 | PN ---
PROGRESS NOTE DATE OF SERVICE: 11/24/2019 REASON FOR FOLLOWUP: Right second toe wet gangrene and cellulitis. INTERVAL HISTORY: Patient is currently afebrile. The patient is breathing comfortably. Overall pain and discomfort to the right foot is slightly decreased. No chest pain or cough. No abdominal pain or diarrhea. PHYSICAL EXAMINATION: Blood pressure 151/67, pulse of 68, temperature 97.7. He is 95% on room air. General description: The patient is an elderly male lying in bed in no distress. Respiratory system: Unlabored breathing, clear to auscultation anteriorly. Heart S1, S2. Regular rate and rhythm. Right foot is currently dressed up. No obvious drainage on the dressing. LABS: Hemoglobin 13.1, white count 8.7, creatinine 0.9. Blood culture negative. No local cultures were done. DIAGNOSTIC IMPRESSION AND PLAN: Patient with right second toe redness and foot cellulitis and the patient did seem to have some clinical improvement. He will try to obtain cultures at the time of dressing changes. Continue with cefepime and vancomycin and monitor clinical course closely. MMODL / IJN: [id number] /
[2019-11-25 00:25] LABS: Hemoglobin A1C 6.5 % (4.0-6.0)
[2019-11-25] MEDS: AMPICILLIN-SULBACTAM 3 GM in SODIUM CHLORIDE 0.9% 100 ML IVPB SCH ×4 (05:52→23:21)
[2019-11-25] MEDS ORDERED: VANCOMYCIN TROUGH DUE 1 EACH MISC MISCELLANE ONE (07:00)
[2019-11-25 07:30] LABS: Basophils # (A) 0.1 k/uL (0-0.2); Basophils % (A) 1 %; Eosinophils # (A) 0.4 k/uL (0-0.7); Eosinophils % (A) 5 %; HCT 47.2 % (39.0-53.0); HGB 14.9 gm/dL (13.0-17.5); Lymphocytes # (A) 1.9 k/uL (1.0-4.8); Lymphocytes % (A) 20 %; MCH 28.8 pg (25.0-35.0); MCHC 31.6 g/dL (31.0-37.0); MCV 91.3 fL (80.0-100.0); Mean Platelet Volume 8.4; Monocytes % (A) 10 %; Neutrophils % (A) 63 %; Platelet Count 239 k/uL (150-450); RBC 5.17 m/uL (4.30-5.90); RDW 13.1 % (11.5-15.5); WBC 9.6 k/uL (3.8-10.6)
[2019-11-25] MEDS: VANCOMYCIN 1,500 MG in SODIUM CHLORIDE 0.9% 250 ML IVPB SCH (08:25)
[2019-11-25] MEDS: PANTOPRAZOLE 40 MG TABLET PO SCH (08:27)
[2019-11-25] MEDS: TAMSULOSIN 0.4 MG CAP.ER.24H PO SCH ×2 (08:28→20:19)
[2019-11-25] MEDS: SODIUM HYPOCHLORITE 0.25% 480 ML BOT MISCELLANE SCH (08:28)
[2019-11-25] MEDS: MONTELUKAST 10 MG TAB PO SCH (08:28)
--- NOTE | 2019-11-25 10:51 | P.PN ---
Subjective This is a pleasant 84-year-old gentleman with past medical history of asthma, CAD, CABG diabetes mellitus, gastroesophageal reflux disease, hypertension, hyperlipidemia, osteoarthritis presented to the ER with worsening right foot pain, cellulitis and second digit infection, low-grade fevers. Reports second digit initially started with a pimple appearance on the top of toe. Patient was started on oral Keflex approximately one week ago by PCP. He also attempted soaking foot with Epsom salts, but his extremity erythema/edema worsened. Patient was referred to ER . Antibiotics initiated. ID consulted. Evaluated by vascular surgery with arterial Doppler ordered. Afebrile, normal WBC. Hematology unremarkable. Chemistry unremarkable with the exception of BUN 21, creatinine 1.4. Glucose 132. Elevated C-reactive protein,140.4. Foot x-ray reported soft tissue swelling, osteoarthritis of the first MP joint, no definite signs of osteomyelitis. Venous Doppler reported no DVT of the right leg, right inguinal lymph node noted-hyper echoic area within right groin measuring 3.4 x 2.4 x 1 cm. 11/24/2019: Basilar surgery seen the patient and is not planning any debridement. Arterial studies showed good circulation up to the level of the ankle. The erythema in his toe and dorsal foot are improved. Infectious disease has seen him and he remains on vancomycin, and Unasyn.. He denies any chest pains, pressures, or shortness of breath today. He is tolerating his diet. He denies any nausea or vomiting. He has not had a bowel movement past 24 hours. Blood cultures remain negative. He has local wound care with Silvadene cream, Curlex dressing and Juan wrap for edema control. Dakin solution to clean the wound and dressing changes. 11/25/2019: Patient is without major complaints today. His wound was examined and the erythema seems to be worse today. They swab culture was obtained earlier today. He remains on Unasyn and vancomycin for antibiotic coverage. He has Dakin solution and dressing changes and Silvadene cream applied every 12 hourly to the affected area. Infectious disease and vascular surgery are following him. He denies any chest pains, pressures, shortness breath. He denies any nausea vomiting. His hemoglobin A1c was 6.5. Objective - Vital Signs Vital signs: Vital Signs Temp 97.8 F 11/25/19 05:26 Pulse 67 11/25/19 05:26 Resp 17 11/25/19 05:26 BP 158/76 11/25/19 05:26 Pulse Ox 95 11/25/19 05:26 Intake & Output 11/24/19 11/25/19 11/25/19 18:59 06:59 18:59 Intake Total 480 400 220 Balance 480 400 220 Intake: Intake, IV Titration 100 Amount Ampicillin-Sulbactam 3 gm 100 In Sodium Chloride 0.9% 100 ml @ 200 mls/hr IVPB Q6HR [facility] Rx#:[id number] Oral 480 300 220 Other: Voiding Method Toilet Toilet Urinal Urinal # Voids 2 1 # Bowel Movements 1 - Exam GENERAL: Sitting up in bed, no acute distress HEENT: Conjunctivae normal. eyes normal. NECK: No JVD. No thyroid enlargement. No LNs CARDIOVASCULAR: S1, S2 regular. No murmur RESPIRATION: Breath sounds diminished in the bases. No rhonchi or crackles. No bronchial breathing. ABDOMEN: Soft, nontender . No guarding. no masses palpable. Positive Bowel sounds. EXTREMITIES: Right lower leg to dorsal mid-foot edema, erythema, edema with second digit gangrenous/blackened changes. Positive faint palpable DP. The overall erythema appears worsened today. PSYCHIATRY: Alert and oriented X3, mood and affect normal. NERVOUS SYSTEM: Cranial N 2-12 grossly normal. Moves all 4 limbs. Diffuse weakness No focal deficits. Strength and sensation grossly intact.. Skin: Warm and dry, no rash Lymphatic system. No LN neck axilla. - Labs CBC & Chem 7: 11/25/19 06:58 11/24/19 06:41 Labs: Abnormal Lab Results - Last 24 Hours (Table) 11/24/19 Range/Units 10:23 Hemoglobin A1c 6.5 H (4.0-6.0) % Microbiology - Last 24 Hours (Table) 11/22/19 16:44 Blood Culture - Preliminary Blood No Growth after 48 hours Assessment and Plan (1) Essential (primary) hypertension Current Visit: Yes Status: Acute Code(s): I10 - ESSENTIAL (PRIMARY) HYPERTENSION SNOMED Code(s): 10966247 (2) BPH (benign prostatic hyperplasia) Current Visit: Yes Status: Acute Code(s): N40.0 - BENIGN PROSTATIC HYP ERPLASIA WITHOUT LOWER URINRY TRACT SYMP SNOMED Code(s): 681613181 (3) Type 2 diabetes mellitus without complications Current Visit: Yes Status: Acute Code(s): E11.9 - TYPE 2 DIABETES MELLITUS WITHOUT COMPLICATIONS SNOMED Code(s): 546995477 (4) Cellulitis of right foot Current Visit: Yes Status: Acute Code(s): L03.115 - CELLULITIS OF RIGHT LOWER LIMB SNOMED Code(s): 248065410 (5) Wet gangrene Current Visit: Yes Status: Acute Code(s): I96 - GANGRENE, NOT ELSEWHERE CLASSIFIED SNOMED Code(s): 933108475 (6) GERD (gastroesophageal reflux disease) Current Visit: No Status: Acute Code(s): K21.9 - GASTRO-ESOPHAGEAL REFLUX DISEASE WITHOUT ESOPHAGITIS SNOMED Code(s): 811201258 Plan: Wait on further recommendations with vascular surgery and ID. I'll take tissue culture myself. I'll add Tradjenta while with NovoLog scale and Accu-Cheks every before meals and at bedtime He made OR debridement yet. We'll repeat labs in am. Reevaluated next 24 hours.
[2019-11-25 12:05] LABS: African American GFR (CKD) 70.1 (60.0-200.0); BUN/Creat Ratio 13.64 Ratio (12.00-20.00); Calcium 9.3 mg/dL (8.7-10.3); Magnesium 1.9 mg/dL (1.5-2.4); Non-African American GFR(CKD) 60.5 (60.0-200.0); Potassium 4.1 mmol/L (3.5-5.5)
[2019-11-25 12:19] LABS: Glucose,Whole Blood 121 mg/dL (75-99)
[2019-11-25] MEDS: INSULIN ASPART (NovoLOG) 100 UNIT/ML VIAL SQ SCH ×3 (12:45→20:23)
[2019-11-25] MEDS: LINAGLIPTIN 5 MG TABLET PO SCH (12:58)
[2019-11-25 17:22] LABS: Glucose,Whole Blood 109 mg/dL (75-99)
[2019-11-25 20:24] LABS: Glucose,Whole Blood 133 mg/dL (75-99)
[2019-11-26] MEDS: VANCOMYCIN 1,500 MG in SODIUM CHLORIDE 0.9% 250 ML IVPB SCH ×2 (00:02→17:19)
--- NOTE | 2019-11-26 05:23 | PN ---
PROGRESS NOTE DATE OF SERVICE: 11/25/2019 REASON FOR FOLLOWUP: Right second toe wet gangrene and cellulitis. INTERVAL HISTORY: The patient did have a bedside I and D of his right second toe by admitting physician. Culture has been obtained. He was also noted to have some worsening cellulitis per the nursing staff. The patient denies having any chest pain. No shortness of breath or cough. No abdominal pain or diarrhea. PHYSICAL EXAMINATION: Blood pressure 142/67 with a pulse of 66, temperature 98. He is 95% on room air. General description is an elderly male lying in bed in no distress. RESPIRATORY SYSTEM: Unlabored breathing, clear to auscultation anteriorly. HEART: S1, S2. Regular rate and rhythm. ABDOMEN: Soft, no tenderness. LABS: Hemoglobin is 14.1. White count 9.6, BUN 15, creatinine 1.1. Vanco trough is low at 11.4. Cultures currently pending. DIAGNOSTIC IMPRESSION AND PLAN: Patient with second toe wet gangrene and foot cellulitis with some worsening of the cellulitis. Vancomycin dose needs to be adjusted to keep the trough around 15. Wound cultures to be followed. Antibiotic adjusted further if needed. MMODL / IJN: [id number] /
[2019-11-26 05:42] LABS: HGB 14.6 gm/dL (13.0-17.5); MCH 29.7 pg (25.0-35.0); MCHC 32.6 g/dL (31.0-37.0); MCV 91.3 fL (80.0-100.0); Mean Platelet Volume 8.4; Platelet Count 232 k/uL (150-450); RBC 4.93 m/uL (4.30-5.90); RDW 12.9 % (11.5-15.5); WBC 8.6 k/uL (3.8-10.6)
[2019-11-26 07:01] LABS: Band Neutrophils % 1 %; Basophils # (M) 0.09 k/uL (0-0.2); Eosinophils # (M) 0.43 k/uL (0-0.7); Lymphocytes # (M) 2.67 k/uL (1.0-4.8); Metamyelocytes # (M) 0.09 k/uL (0); Metamyelocytes % 1 %; Monocytes # (M) 1.29 k/uL (0-1.0); Neutrophils % (M) 46 %; Nucleated Red Blood Cells 0 /100 WBC (0-0); Total Cells Counted 100
[2019-11-26 07:16] LABS: Glucose,Whole Blood 120 mg/dL (75-99)
[2019-11-26] MEDS: INSULIN ASPART (NovoLOG) 100 UNIT/ML VIAL SQ SCH ×4 (07:26→20:05)
[2019-11-26] MEDS: AMPICILLIN-SULBACTAM 3 GM in SODIUM CHLORIDE 0.9% 100 ML IVPB SCH ×4 (07:26→23:54)
[2019-11-26] MEDS: TAMSULOSIN 0.4 MG CAP.ER.24H PO SCH ×2 (09:00→20:05)
[2019-11-26] MEDS: LINAGLIPTIN 5 MG TABLET PO SCH (09:00)
[2019-11-26] MEDS: MONTELUKAST 10 MG TAB PO SCH (09:00)
[2019-11-26] MEDS: PANTOPRAZOLE 40 MG TABLET PO SCH (09:01)
[2019-11-26 11:02] LABS: African American GFR (CKD) 70.1 (60.0-200.0); Anion Gap 9.3 mmol/L (4.00-12.00); BUN/Creat Ratio 14.55 Ratio (12.00-20.00); C Reactive Protein 3.7 mg/dL (0.0-0.8); Calcium 9.3 mg/dL (8.7-10.3); Carbon Dioxide 25.7 mmol/L (21.6-31.8); Non-African American GFR(CKD) 60.5 (60.0-200.0); Potassium 4.2 mmol/L (3.5-5.5)
[2019-11-26] MEDS: SODIUM HYPOCHLORITE 0.25% 480 ML BOT MISCELLANE SCH (11:08)
--- NOTE | 2019-11-26 12:05 | P.PN ---
Subjective Progress Note Date: 11/26/19 Principal diagnosis: Cellulitis of right foot Patient was seen and examined the bedside. Patient denies any fevers or chills. He denies any acute changes through the night. He states he is now able to walk easier on the right foot, swelling has gone down. Pain is tolerable. He continues on IV antibiotics Zosyn and vancomycin per recommendation of infectious disease. Cultures of the second toe have been obtained and are pending. Objective - Vital Signs Vital signs: Vital Signs Temp 98.0 F 11/25/19 20:33 Pulse 66 11/25/19 20:33 Resp 14 11/26/19 00:00 BP 142/67 11/25/19 20:33 Pulse Ox 95 11/25/19 20:33 Intake & Output 11/25/19 11/26/19 11/26/19 18:59 06:59 18:59 Intake Total 1180 600 Output Total 500 Balance 1180 100 Intake: Intake, IV Titration 200 Amount Ampicillin-Sulbactam 3 gm 200 In Sodium Chloride 0.9% 100 ml @ 200 mls/hr IVPB Q6HR [facility] Rx#:[id number] Oral 1180 400 Output: Urine 500 Other: Voiding Method Toilet Toilet Toilet Urinal Urinal Urinal # Voids 2 1 1 - Exam General appearance: The patient is alert, oriented, in no acute distress. HET: Head is normocephalic and atraumatic. Pupils are equal and reactive. Oropharynx is clear without lesions. Extremities: Mild erythema extending from the second toe to the dorsal aspect of the right foot. Healing has improved. The left toe is without any drainage or foul odor. There are 2 small dark areas that appear to be scabbing. Improved range of motion of foot and toes. Swelling of the plantar aspect of the right foot also improved. Neurological: No focal deficits. Strength and sensation are grossly intact. - Labs CBC & Chem 7: 11/26/19 04:42 11/26/19 04:42 Labs: Abnormal Lab Results - Last 24 Hours (Table) 11/25/19 11/25/19 11/25/19 Range/Units 06:58 12:18 17:21 Monocytes # (Manual) (0-1.0) k/uL Metamyelocytes # (Man) (0) k/uL Glucose 132 H (70-110) mg/dL POC Glucose (mg/dL) 121 H 109 H (75-99) mg/dL C-Reactive Protein (0.0-0.8) mg/dL 11/25/19 11/26/19 11/26/19 Range/Units 20:22 04:42 04:42 Monocytes # (Manual) 1.29 H (0-1.0) k/uL Metamyelocytes # (Man) 0.09 H (0) k/uL Glucose (70-110) mg/dL POC Glucose (mg/dL) 133 H (75-99) mg/dL C-Reactive Protein 3.7 H (0.0-0.8) mg/dL 11/26/19 Range/Units 07:14 Monocytes # (Manual) (0-1.0) k/uL Metamyelocytes # (Man) (0) k/uL Glucose (70-110) mg/dL POC Glucose (mg/dL) 120 H (75-99) mg/dL C-Reactive Protein (0.0-0.8) mg/dL Microbiology - Last 24 Hours (Table) 11/25/19 10:45 Gram Stain - Preliminary Toe - Right Second Tissue Culture - Preliminary 11/22/19 16:44 Blood Culture - Preliminary Blood No Growth after 72 hours 11/25/19 08:35 Gram Stain - Preliminary Toe - Right Second Wound Culture - Preliminary 11/24/19 10:23 Blood Culture - Preliminary Blood No Growth after 24 hours Assessment and Plan Assessment: 1. Cellulitis of the right foot 2. Right second toe wound 3. Pain in the right foot 4. Diabetes mellitus 5. Coronary artery disease 6. Hypertension 7. Hyperlipidemia Plan: Continue with IV antibiotics per recommendation of infectious disease. Arterial Doppler was completed and reviewed by Dr. Morales that demonstrated noncompressibility of vessels which leaves pressures unreliable. Pulse volume recording waveforms demonstrate reasonably good flow along the entirety of the right lower extremity If there is not complete resolution of infectious process patient may benefit from a catheter angiogram. Patient is recommended to follow-up with vascular surgery in the office as an outpatient. We'll continue to follow closely. Thank you for this kind referral and the opportunity to participate in the care of your patient. This consultation was discussed with Dr. Kumar. The impression and plan of care have been directed as dictated.
[2019-11-26 12:19] LABS: Glucose,Whole Blood 114 mg/dL (75-99)
--- NOTE | 2019-11-26 15:27 | PN ---
PROGRESS NOTE DATE OF SERVICE: 11/26/2019 REASON FOR FOLLOWUP: Right second toe and foot cellulitis. INTERVAL HISTORY: The patient is currently afebrile. The patient is feeling better, breathing comfortably. Overall pain and discomfort to the right foot has slightly decreased in intensity. No chest pain. No cough. No abdominal pain or diarrhea. PHYSICAL EXAMINATION: Blood pressure 142/67, pulse of 66, temperature 98. He is 95% on room air. General description is an elderly male lying in bed in no distress. RESPIRATORY SYSTEM: Unlabored breathing. Clear to auscultation anteriorly. HEART: S1, S2. Regular rate and rhythm. ABDOMEN: Soft. No tenderness. Right 2nd toe and dorsum of the foot swelling and redness have improved. No drainage. LABS: Hemoglobin is 14.6, white count 8.6. BUN of 16, creatinine 1.1. DIAGNOSTIC IMPRESSION AND PLAN: Patient with right second toe gangrene with secondary cellulitis. It may have shown some clinical improvement with Unasyn and vancomycin; to continue, adjusting antibiotics further on the basis of culture report. Will likely need a PICC line for outpatient IV antibiotic. Continue with supportive care. `` MMODL / IJN: [id number] / BRANDON
--- NOTE | 2019-11-26 17:06 | P.PN ---
Subjective Progress Note Date: 11/26/19 This is a pleasant 84-year-old gentleman with past medical history of asthma, CAD, CABG diabetes mellitus, gastroesophageal reflux disease, hypertension, hyperlipidemia, osteoarthritis presented to the ER with worsening right foot pain, cellulitis and second digit infection, low-grade fevers. Reports second digit initially started with a pimple appearance on the top of toe. Patient was started on oral Keflex approximately one week ago by PCP. He also attempted soaking foot with Epsom salts, but his extremity erythema/edema worsened. Patient was referred to ER . Antibiotics initiated. ID consulted. Evaluated by vascular surgery with arterial Doppler ordered. Afebrile, normal WBC. Hematology unremarkable. Chemistry unremarkable with the exception of BUN 21, creatinine 1.4. Glucose 132. Elevated C-reactive protein,140.4. Foot x-ray reported soft tissue swelling, osteoarthritis of the first MP joint, no definite signs of osteomyelitis. Venous Doppler reported no DVT of the right leg, right inguinal lymph node noted-hyper echoic area within right groin measuring 3.4 x 2.4 x 1 cm. 11/24/2019: Basilar surgery seen the patient and is not planning any debridement. Arterial studies showed good circulation up to the level of the ankle. The erythema in his toe and dorsal foot are improved. Infectious disease has seen him and he remains on vancomycin, and Unasyn.. He denies any chest pains, pressures, or shortness of breath today. He is tolerating his diet. He denies any nausea or vomiting. He has not had a bowel movement past 24 hours. Blood cultures remain negative. He has local wound care with Silvadene cream, Curlex dressing and Juan wrap for edema control. Dakin solution to clean the wound and dressing changes. 11/25/2019: Patient is without major complaints today. His wound was examined and the erythema seems to be worse today. They swab culture was obtained earlier today. He remains on Unasyn and vancomycin for antibiotic coverage. He has Dakin solution and dressing changes and Silvadene cream applied every 12 hourly to the affected area. Infectious disease and vascular surgery are following him. He denies any chest pains, pressures, shortness breath. He denies any nausea vomiting. His hemoglobin A1c was 6.5. 11/26/2019 maintain on IV antibiotics of Zosyn and vancomycin per ID with final wound cultures pending. Afebrile, normal WBC. Creatinine 1.1. Ambulating easier. Denies chest pain, palpitations or shortness of breath. Objective - Vital Signs Vital signs: Vital Signs Temp 98.0 F 11/25/19 20:33 Pulse 66 11/25/19 20:33 Resp 14 11/26/19 00:00 BP 142/67 11/25/19 20:33 Pulse Ox 95 11/25/19 20:33 Intake & Output 11/25/19 11/26/19 11/26/19 18:59 06:59 18:59 Intake Total 1180 600 Output Total 500 Balance 1180 100 Intake: Intake, IV Titration 200 Amount Ampicillin-Sulbactam 3 gm 200 In Sodium Chloride 0.9% 100 ml @ 200 mls/hr IVPB Q6HR [facility] Rx#:[id number] Oral 1180 400 Output: Urine 500 Other: Voiding Method Toilet Toilet Toilet Urinal Urinal Urinal # Voids 2 1 1 - Exam GENERAL: Sitting up in bed, no acute distress HEENT: Conjunctivae normal. eyes normal. NECK: No JVD. No thyroid enlargement. No LNs CARDIOVASCULAR: S1, S2 regular. No murmur RESPIRATION: Breath sounds diminished in the bases. ABDOMEN: Soft, nontender . No guarding. no masses palpable. Positive Bowel sounds. EXTREMITIES: Right lower extremity dressing clean dry and intact. Decreased edema without odor. PSYCHIATRY: Alert and oriented X3, mood and affect normal. NERVOUS SYSTEM: Cranial N 2-12 grossly normal. Moves all 4 limbs. Diffuse weakness No focal deficits. Strength and sensation grossly intact.. Skin: Warm and dry, no rash Microbiology 11/24/19 10:23 Blood Blood Culture - Preliminary No Growth after 48 hours 11/25/19 10:45 Toe - Right Second Gram Stain - Preliminary 11/25/19 10:45 Toe - Right Second Tissue Culture - Preliminary 11/22/19 16:44 Blood Blood Culture - Preliminary No Growth after 72 hours 11/25/19 08:35 Toe - Right Second Gram Stain - Preliminary 11/25/19 08:35 Toe - Right Second Wound Culture - Preliminary - Labs CBC & Chem 7: 11/26/19 04:42 11/26/19 04:42 Labs: Abnormal Lab Results - Last 24 Hours (Table) 11/25/19 11/25/19 11/25/19 Range/Units 06:58 12:18 17:21 Monocytes # (Manual) (0-1.0) k/uL Metamyelocytes # (Man) (0) k/uL Glucose 132 H (70-110) mg/dL POC Glucose (mg/dL) 121 H 109 H (75-99) mg/dL C-Reactive Protein (0.0-0.8) mg/dL 11/25/19 11/26/19 11/26/19 Range/Units 20:22 04:42 04:42 Monocytes # (Manual) 1.29 H (0-1.0) k/uL Metamyelocytes # (Man) 0.09 H (0) k/uL Glucose (70-110) mg/dL POC Glucose (mg/dL) 133 H (75-99) mg/dL C-Reactive Protein 3.7 H (0.0-0.8) mg/dL 11/26/19 Range/Units 07:14 Monocytes # (Manual) (0-1.0) k/uL Metamyelocytes # (Man) (0) k/uL Glucose (70-110) mg/dL POC Glucose (mg/dL) 120 H (75-99) mg/dL C-Reactive Protein (0.0-0.8) mg/dL Microbiology - Last 24 Hours (Table) 11/25/19 10:45 Gram Stain - Preliminary Toe - Right Second Tissue Culture - Preliminary 11/22/19 16:44 Blood Culture - Preliminary Blood No Growth after 72 hours 11/25/19 08:35 Gram Stain - Preliminary Toe - Right Second Wound Culture - Preliminary 11/24/19 10:23 Blood Culture - Preliminary Blood No Growth after 24 hours Assessment and Plan Assessment: Cellulitis of right foot with second digit infection, failed outpatient treatment, status post bedside debridement Diabetes mellitus CAD, history of CABG Hypertension, essential hyperlipidemia Gastroesophageal reflux disease Chronic intermittent asthma, stable BPH Plan: Continue on current medication regime ,monitoring and symptomatic treatment.IV antibiotics as per infectious disease. Maintain tight control of blood sugars with close monitoring of Accu-Cheks. Follow closely with vascular surgery and ID. arterial Doppler results noted, with potential catheter angiogram if there is not complete resolution infectious process as per vascular. discharge planning in progress pending final culture results. The impression and plan of care has been dictated as directed. : I performed a history and examination of this patient, discussed the same with the dictator. I agree with the dictator's note ,documented as a scribe. Any additional findings or plans will be noted.
[2019-11-26 17:29] LABS: Glucose,Whole Blood 156 mg/dL (75-99)
[2019-11-26 20:00] LABS: Glucose,Whole Blood 118 mg/dL (75-99)
[2019-11-27] MEDS: AMPICILLIN-SULBACTAM 3 GM in SODIUM CHLORIDE 0.9% 100 ML IVPB SCH ×4 (05:36→23:40)
[2019-11-27] MEDS ORDERED: VANCOMYCIN TROUGH DUE 1 EACH MISC MISCELLANE ONE (07:00)
[2019-11-27 07:11] LABS: Glucose,Whole Blood 106 mg/dL (75-99)
[2019-11-27] MEDS: INSULIN ASPART (NovoLOG) 100 UNIT/ML VIAL SQ SCH ×4 (07:18→21:03)
[2019-11-27] MEDS: VANCOMYCIN 1,500 MG in SODIUM CHLORIDE 0.9% 250 ML IVPB SCH (08:27)
[2019-11-27] MEDS: MONTELUKAST 10 MG TAB PO SCH (08:30)
[2019-11-27] MEDS: TAMSULOSIN 0.4 MG CAP.ER.24H PO SCH ×2 (08:30→21:30)
[2019-11-27] MEDS: LINAGLIPTIN 5 MG TABLET PO SCH (08:30)
[2019-11-27] MEDS: PANTOPRAZOLE 40 MG TABLET PO SCH (08:30)
[2019-11-27] MEDS: SODIUM HYPOCHLORITE 0.25% 480 ML BOT MISCELLANE SCH (08:31)
[2019-11-27 11:40] LABS: Glucose,Whole Blood 111 mg/dL (75-99)
--- NOTE | 2019-11-27 12:31 | P.PN ---
Subjective Progress Note Date: 11/27/19 Principal diagnosis: Cellulitis of right foot Patient was seen and examined at the bedside with Dr. Del Valle. He is up ambulating without difficulty. He denies any acute changes through the night. He has remained afebrile. He continues with IV Zosyn and vancomycin. Cultures showing presumptive staph aureus, final still pending. Objective - Vital Signs Vital signs: Vital Signs Temp 97.8 F 11/27/19 05:00 Pulse 69 11/27/19 05:00 Resp 18 11/27/19 05:00 BP 144/74 11/27/19 05:00 Pulse Ox 95 11/27/19 05:00 Intake & Output 11/26/19 11/27/19 11/27/19 18:59 06:59 18:59 Intake Total 100 400 Balance 100 400 Intake: Intake, IV Titration 100 200 Amount Ampicillin-Sulbactam 3 gm 100 200 In Sodium Chloride 0.9% 100 ml @ 200 mls/hr IVPB Q6HR [facility] Rx#:[id number] Oral 200 Other: Voiding Method Toilet Toilet Urinal Urinal # Voids 1 2 1 - Exam General appearance: The patient is alert, oriented, in no acute distress. HET: Head is normocephalic and atraumatic. Pupils are equal and reactive. Oropharynx is clear without lesions. Extremities: Mild erythema extending from the second toe to the dorsal aspect of the right foot. Palpable DP pulse. The proximal apsect of the right second toe with yellow drainage. Dorsal and medial aspect of the second toe with areas of necrosis. Improved range of motion of foot and toes. Swelling of the plantar aspect of the right foot also improved. Neurological: No focal deficits. Strength and sensation are grossly intact. - Labs CBC & Chem 7: 11/26/19 04:42 11/26/19 04:42 Labs: Abnormal Lab Results - Last 24 Hours (Table) 11/26/19 11/26/19 11/26/19 Range/Units 04:42 12:17 17:28 POC Glucose (mg/dL) 114 H 156 H (75-99) mg/dL C-Reactive Protein 3.7 H (0.0-0.8) mg/dL 11/26/19 11/27/19 Range/Units 19:59 07:08 POC Glucose (mg/dL) 118 H 106 H (75-99) mg/dL C-Reactive Protein (0.0-0.8) mg/dL Microbiology - Last 24 Hours (Table) 11/25/19 10:45 Gram Stain - Preliminary Toe - Right Second Tissue Culture - Preliminary Presumptive Staph aureus 11/25/19 08:35 Gram Stain - Final Toe - Right Second Wound Culture - Final 11/22/19 16:44 Blood Culture - Preliminary Blood No Growth after 96 hours 11/24/19 10:23 Blood Culture - Preliminary Blood No Growth after 48 hours Assessment and Plan Assessment: 1. Cellulitis of the right foot 2. Right second toe wound 3. Pain in the right foot 4. Diabetes mellitus 5. Coronary artery disease 6. Hypertension 7. Hyperlipidemia Plan: Continue with IV antibiotics per recommendation of infectious disease. Continue with local wound care. At this time there is no indication for any vascular surgical intervention. Patient is recommended to follow-up with Dr. Kumar in the office as an outpatient in one week. We'll continue to follow closely. Thank you for this kind referral and the opportunity to participate in the care of your patient. This consultation was discussed with Dr. Del Valle The impression and plan of care have been directed as dictated.
--- NOTE | 2019-11-27 15:14 | P.PN ---
Subjective Progress Note Date: 11/27/19 This is a pleasant 84-year-old gentleman with past medical history of asthma, CAD, CABG diabetes mellitus, gastroesophageal reflux disease, hypertension, hyperlipidemia, osteoarthritis presented to the ER with worsening right foot pain, cellulitis and second digit infection, low-grade fevers. Reports second digit initially started with a pimple appearance on the top of toe. Patient was started on oral Keflex approximately one week ago by PCP. He also attempted soaking foot with Epsom salts, but his extremity erythema/edema worsened. Patient was referred to ER . Antibiotics initiated. ID consulted. Evaluated by vascular surgery with arterial Doppler ordered. Afebrile, normal WBC. Hematology unremarkable. Chemistry unremarkable with the exception of BUN 21, creatinine 1.4. Glucose 132. Elevated C-reactive protein,140.4. Foot x-ray reported soft tissue swelling, osteoarthritis of the first MP joint, no definite signs of osteomyelitis. Venous Doppler reported no DVT of the right leg, right inguinal lymph node noted-hyper echoic area within right groin measuring 3.4 x 2.4 x 1 cm. 11/24/2019: Basilar surgery seen the patient and is not planning any debridement. Arterial studies showed good circulation up to the level of the ankle. The erythema in his toe and dorsal foot are improved. Infectious disease has seen him and he remains on vancomycin, and Unasyn.. He denies any chest pains, pressures, or shortness of breath today. He is tolerating his diet. He denies any nausea or vomiting. He has not had a bowel movement past 24 hours. Blood cultures remain negative. He has local wound care with Silvadene cream, Curlex dressing and Juan wrap for edema control. Dakin solution to clean the wound and dressing changes. 11/25/2019: Patient is without major complaints today. His wound was examined and the erythema seems to be worse today. They swab culture was obtained earlier today. He remains on Unasyn and vancomycin for antibiotic coverage. He has Dakin solution and dressing changes and Silvadene cream applied every 12 hourly to the affected area. Infectious disease and vascular surgery are following him. He denies any chest pains, pressures, shortness breath. He denies any nausea vomiting. His hemoglobin A1c was 6.5. 11/26/2019 maintain on IV antibiotics of Zosyn and vancomycin per ID with final wound cultures pending. Afebrile, normal WBC. Creatinine 1.1. Ambulating easier. Denies chest pain, palpitations or shortness of breath. 11/27/2019 maintain on IV antibiotics as per ID. Afebrile. Sugars controlled. Right second toe tissue preliminary culture reporting presumptive staph. Ambulating without difficulty. Denies chest pain, palpitations or shortness of breath. Objective - Vital Signs Vital signs: Vital Signs Temp 97.8 F 11/27/19 05:00 Pulse 69 11/27/19 05:00 Resp 18 11/27/19 05:00 BP 144/74 11/27/19 05:00 Pulse Ox 95 11/27/19 05:00 Intake & Output 11/26/19 11/27/19 11/27/19 18:59 06:59 18:59 Intake Total 100 400 Balance 100 400 Intake: Intake, IV Titration 100 200 Amount Ampicillin-Sulbactam 3 gm 100 200 In Sodium Chloride 0.9% 100 ml @ 200 mls/hr IVPB Q6HR [facility] Rx#:[id number] Oral 200 Other: Voiding Method Toilet Toilet Urinal Urinal # Voids 1 2 1 - Exam GENERAL: Sitting up in bed, no acute distress HEENT: Conjunctivae normal. eyes normal. NECK: No JVD. No thyroid enlargement. No LNs CARDIOVASCULAR: S1, S2 regular. No murmur RESPIRATION: Breath sounds diminished in the bases. ABDOMEN: Soft, nontender . No guarding. no masses palpable. Positive Bowel sounds. EXTREMITIES: Right lower extremity dressing clean dry and intact. Decreasing edema. PSYCHIATRY: Alert and oriented X3, mood and affect normal. NERVOUS SYSTEM: Cranial N 2-12 grossly normal. Moves all 4 limbs. Diffuse weakness No focal deficits. Strength and sensation grossly intact.. Skin: Warm and dry, no rash Microbiology 11/24/19 10:23 Blood Blood Culture - Preliminary No Growth after 72 hours 11/25/19 10:45 Toe - Right Second Gram Stain - Preliminary 11/25/19 10:45 Toe - Right Second Tissue Culture - Preliminary Presumptive Staph aureus 11/25/19 08:35 Toe - Right Second Gram Stain - Final 11/25/19 08:35 Toe - Right Second Wound Culture - Final 11/22/19 16:44 Blood Blood Culture - Preliminary No Growth after 96 hours - Labs CBC & Chem 7: 11/26/19 04:42 11/26/19 04:42 Labs: Abnormal Lab Results - Last 24 Hours (Table) 11/26/19 11/26/19 11/26/19 Range/Units 12:17 17:28 19:59 POC Glucose (mg/dL) 114 H 156 H 118 H (75-99) mg/dL 11/27/19 Range/Units 07:08 POC Glucose (mg/dL) 106 H (75-99) mg/dL Microbiology - Last 24 Hours (Table) 11/25/19 10:45 Gram Stain - Preliminary Toe - Right Second Tissue Culture - Preliminary Presumptive Staph aureus 11/25/19 08:35 Gram Stain - Final Toe - Right Second Wound Culture - Final 11/22/19 16:44 Blood Culture - Preliminary Blood No Growth after 96 hours 11/24/19 10:23 Blood Culture - Preliminary Blood No Growth after 48 hours Assessment and Plan Assessment: Cellulitis of right foot with second digit infection, failed outpatient treatment, status post bedside debridement Diabetes mellitus CAD, history of CABG Hypertension, essential hyperlipidemia Gastroesophageal reflux disease Chronic intermittent asthma, stable BPH Plan: Continue on current medication regime ,monitoring and symptomatic treatment.continue IV antibiotics.Close monitoring of Accu-Cheks.Discharge planning in progress pending final culture results, final DC recommendations and clearance from ID. The impression and plan of care has been dictated as directed. : I performed a history and examination of this patient, discussed the same with the dictator. I agree with the dictator's note ,documented as a scribe. Any additional findings or plans will be noted.
[2019-11-27 17:12] LABS: Glucose,Whole Blood 125 mg/dL (75-99)
[2019-11-27 19:50] LABS: Glucose,Whole Blood 125 mg/dL (75-99)
--- NOTE | 2019-11-27 23:23 | PN ---
PROGRESS NOTE DATE OF SERVICE: 11/27/2019 REASON FOR FOLLOWUP: Right second toe and foot cellulitis. INTERVAL HISTORY: The patient is currently afebrile. The patient is breathing comfortably. The patient denies having any chest pain or shortness of breath or cough. No nausea. No vomiting. No abdominal pain or any worsening pain to the right foot. PHYSICAL EXAMINATION: Blood pressure 133/78 with a pulse of 88, temperature 98. He is 94% on room air. General description is an elderly male lying in bed in no distress. RESPIRATORY SYSTEM: Unlabored breathing. Clear to auscultation anteriorly. HEART: S1, S2. Regular rate and rhythm. ABDOMEN: Soft. No tenderness. Right foot is currently dressed up. No obvious drainage on the dressing. Local wound culture is showing Staph aureus. DIAGNOSTIC IMPRESSION AND PLAN: Patient with right second toe wet gangrene and secondary cellulitis of the right foot. Local culture with Staph aureus, sensitivities pending. Currently covered with Unasyn and vancomycin. The patient will get a PICC line for outpatient IV antibiotic. Discharge antibiotic depending upon the final culture report. Continue with supportive care. MMODL / IJN: [id number] /
[2019-11-28] MEDS: VANCOMYCIN 1,500 MG in SODIUM CHLORIDE 0.9% 250 ML IVPB SCH ×2 (00:52→15:24)
[2019-11-28 04:59] LABS: Basophils # (A) 0.1 k/uL (0-0.2); Basophils % (A) 1 %; Eosinophils # (A) 0.4 k/uL (0-0.7); Eosinophils % (A) 5 %; HCT 43.4 % (39.0-53.0); HGB 13.8 gm/dL (13.0-17.5); Lymphocytes # (A) 1.7 k/uL (1.0-4.8); Lymphocytes % (A) 21 %; MCH 29.3 pg (25.0-35.0); MCHC 31.9 g/dL (31.0-37.0); MCV 91.8 fL (80.0-100.0); Mean Platelet Volume 8.8; Monocytes # (A) 0.8 k/uL (0-1.0); Monocytes % (A) 10 %; Neutrophils % (A) 62 %; Platelet Count 237 k/uL (150-450); RBC 4.72 m/uL (4.30-5.90); WBC 8.1 k/uL (3.8-10.6)
[2019-11-28] MEDS: AMPICILLIN-SULBACTAM 3 GM in SODIUM CHLORIDE 0.9% 100 ML IVPB SCH ×2 (06:13→12:29)
[2019-11-28 07:15] LABS: Glucose,Whole Blood 102 mg/dL (75-99)
[2019-11-28] MEDS: INSULIN ASPART (NovoLOG) 100 UNIT/ML VIAL SQ SCH ×4 (09:09→21:14)
[2019-11-28] MEDS: PANTOPRAZOLE 40 MG TABLET PO SCH (09:28)
[2019-11-28] MEDS: TAMSULOSIN 0.4 MG CAP.ER.24H PO SCH ×2 (09:29→21:18)
[2019-11-28] MEDS: LINAGLIPTIN 5 MG TABLET PO SCH (09:29)
[2019-11-28] MEDS: MONTELUKAST 10 MG TAB PO SCH (09:29)
[2019-11-28] MEDS: SODIUM HYPOCHLORITE 0.25% 480 ML BOT MISCELLANE SCH (09:30)
[2019-11-28] MEDS ORDERED: LIDOCAINE 1% INJ 10MG/ML (20 ML MDV) ONE (09:46)
--- NOTE | 2019-11-28 10:17 | P.ARTDOP ---
Arterial Doppler LOWER EXTREMITY ARTERIAL DOPPLER: DATE OF SERVICE: 11/23/2019 Reason for study: Redness right foot. Doppler waveforms: Multiphasic bilaterally throughout. Excellent toe waveforms.. Pulse volume recording: []. Pressure gradients: Only at the foot level. Ankle-brachial indices: Cannot occlude on either side. Toe brachial indices: 0.43 on the right, 0.48 on the left Impression: Excellent flow throughout. May be mild fem-pop disease. Suspect calcific wall disease due to inability to compress ankle pressures. Perfusion most likely adequate for healing. Clinical correlation recommended..
--- NOTE | 2019-11-28 11:05 | P.DS ---
Providers Date of admission: 11/22/19 17:34 Expected date of discharge: 11/28/19 Attending physician: Alfredo Carbone Consults: 11/22/19 17:35 Consult Physician Routine Consulting Provider: Kenneth Morales Consult Reason/Comments: Foot cellulitis, wet gangrene Do you want consulting provider notified?: Yes Consult Physician Routine Consulting Provider: Hilda Marcelo Consult Reason/Comments: rt foot infection Do you want consulting provider notified?: Yes Primary care physician: Alfredo Carbone Hospital Course: Final Diagnoses: Wet gangrene of the right second toe with secondary cellulitis of right foot, failed outpatient treatment, status post bedside debridement, preliminary tissue culture reporting presumptive staph aureus Diabetes mellitus CAD, history of CABG Hypertension, essential hyperlipidemia Gastroesophageal reflux disease Chronic intermittent asthma, stable BPH Hospital course:This is a pleasant 84-year-old gentleman with past medical history of asthma, CAD, CABG diabetes mellitus, gastroesophageal reflux disease, hypertension, hyperlipidemia, osteoarthritis presented to the ER with worsening right foot pain, cellulitis and second digit infection, low-grade fevers. Reports second digit initially started with a pimple appearance on the top of toe. Patient was started on oral Keflex approximately one week ago by PCP. He also attempted soaking foot with Epsom salts, but his extremity erythema/edema worsened. Patient was referred to ER . Antibiotics initiated. ID consulted. Evaluated by vascular surgery with arterial Doppler ordered. Afebrile, normal WBC. Hematology unremarkable. Chemistry unremarkable with the exception of BUN 21, creatinine 1.4. Glucose 132. Elevated C-reactive protein,140.4. Foot x- ray reported soft tissue swelling, osteoarthritis of the first MP joint, no definite signs of osteomyelitis. Venous Doppler reported no DVT of the right leg, right inguinal lymph node noted-hyper echoic area within right groin measuring 3.4 x 2.4 x 1 cm. 11/24/2019: Basilar surgery seen the patient and is not planning any debridement. Arterial studies showed good circulation up to the level of the ankle. The erythema in his toe and dorsal foot are improved. Infectious disease has seen him and he remains on vancomycin, and Unasyn.. He denies any chest pains, pressures, or shortness of breath today. He is tolerating his diet. He denies any nausea or vomiting. He has not had a bowel movement past 24 hours. Blood cultures remain negative. He has local wound care with Silvadene cream, Curlex dressing and Juan wrap for edema control. Dakin solution to clean the wound and dressing changes. 11/25/2019: Patient is without major complaints today. His wound was examined and the erythema seems to be worse today. They swab culture was obtained earlier today. He remains on Unasyn and vancomycin for antibiotic coverage. He has Dakin solution and dressing changes and Silvadene cream applied every 12 ho urly to the affected area. Infectious disease and vascular surgery are following him. He denies any chest pains, pressures, shortness breath. He denies any nausea vomiting. His hemoglobin A1c was 6.5. 11/26/2019 maintain on IV antibiotics of Zosyn and vancomycin per ID with final wound cultures pending. Afebrile, normal WBC. Creatinine 1.1. Ambulating easier. Denies chest pain, palpitations or shortness of breath. 11/27/2019 maintain on IV antibiotics as per ID. Afebrile. Sugars controlled. Right second toe tissue preliminary culture reporting presumptive staph. Ambulating without difficulty. Denies chest pain, palpitations or shortness of breath. Maintained on IV antibiotics as per ID. Arterial study reported excellent flow, possible mild component disease. Significant clinical improvement. Patient will be discharged home, in a stable condition with guarded prognosis, pending PICC line placement, final DC recommendations/antibiotics and wound care with clearance from infectious disease. The impression and plan of care has been dictated as directed. : I performed a history and examination of this patient, discussed the same with the dictator. I agree with the dictator's note ,documented as a scribe. Any additional findings or plans will be noted. Patient Condition at Discharge: Stable Plan - Discharge Summary Discharge Rx Participant: No New Discharge Prescriptions: New Linagliptin [Tradjenta] 5 mg PO DAILY #30 tablet Acetaminophen Tab [Tylenol] 650 mg PO Q6HR PRN tab PRN Reason: Mild Pain Or Fever > 100.5 Continue Cholecalciferol [Vitamin D3 (25 Mcg = 1000 Iu)] 1,000 unit PO DAILY Montelukast [Singulair] 10 mg PO DAILY Discontinued Meloxicam [Mobic] 7.5 mg PO BID No Action lisinopriL [Zestril] 1.25 mg PO DAILY Simvastatin [Zocor] 40 mg PO HS Omeprazole [PriLOSEC] 20 mg PO BID Tamsulosin HCl [Flomax] 0.4 mg PO BID Discharge Medication List Omeprazole [PriLOSEC] 20 mg PO BID 04/17/14 [History] Simvastatin [Zocor] 40 mg PO HS 04/17/14 [History] lisinopriL [Zestril] 1.25 mg PO DAILY 04/17/14 [History] Tamsulosin HCl [Flomax] 0.4 mg PO BID 01/17/18 [History] Cholecalciferol [Vitamin D3 (25 Mcg = 1000 Iu)] 1,000 unit PO DAILY 11/22/19 [History] Montelukast [Singulair] 10 mg PO DAILY 11/22/19 [History] Acetaminophen Tab [Tylenol] 650 mg PO Q6HR PRN tab 11/28/19 [Rx] Linagliptin [Tradjenta] 5 mg PO DAILY #30 tablet 11/28/19 [Rx] Follow up Appointment(s)/Referral(s): Alfredo Carbone MD [Primary Care Provider] - 1-2 days
--- NOTE | 2019-11-28 11:15 | P.PN ---
Subjective Progress Note Date: 11/28/19 Principal diagnosis: Cellulitis of right foot She was seen and examined at the bedside. No acute changes through the night. Patient remains afebrile. Patient is scheduled to go for PICC line placement today for outpatient IV antibiotics. Objective - Vital Signs Vital signs: Vital Signs Temp 97.8 F 11/28/19 08:08 Pulse 67 11/28/19 08:08 Resp 16 11/28/19 05:00 BP 150/75 11/28/19 08:08 Pulse Ox 96 11/28/19 05:00 Intake & Output 11/27/19 11/28/19 11/28/19 18:59 06:59 18:59 Intake Total 350 350 Balance 350 350 Intake: Intake, IV Titration 350 350 Amount Ampicillin-Sulbactam 3 gm 100 100 In Sodium Chloride 0.9% 100 ml @ 200 mls/hr IVPB Q6HR [facility] Rx#:[id number] Vancomycin 1,500 mg In 250 250 Sodium Chloride 0.9% 250 ml @ 125 mls/hr IVPB Q16H [facility] Rx#:[id number] Other: Voiding Method Toilet Urinal # Voids 1 1 - Exam General appearance: The patient is alert, oriented, in no acute distress. HET: Head is normocephalic and atraumatic. Pupils are equal and reactive. Oropharynx is clear without lesions. Extremities: Right foot with dressing clean dry and intact. Full range of motion. Neurological: No focal deficits. Strength and sensation are grossly intact. - Labs CBC & Chem 7: 11/28/19 04:40 11/26/19 04:42 Labs: Abnormal Lab Results - Last 24 Hours (Table) 11/27/19 11/27/19 11/27/19 Range/Units 11:31 17:09 19:49 POC Glucose (mg/dL) 111 H 125 H 125 H (75-99) mg/dL 11/28/19 Range/Units 07:13 POC Glucose (mg/dL) 102 H (75-99) mg/dL Microbiology - Last 24 Hours (Table) 11/22/19 16:44 Blood Culture - Preliminary Blood No Growth after 120 hours 11/24/19 10:23 Blood Culture - Preliminary Blood No Growth after 72 hours 11/25/19 10:45 Gram Stain - Preliminary Toe - Right Second Tissue Culture - Preliminary Presumptive Staph aureus 11/25/19 08:35 Gram Stain - Final Toe - Right Second Wound Culture - Final Assessment and Plan Assessment: 1. Cellulitis of the right foot 2. Right second toe wound 3. Pain in the right foot 4. Diabetes mellitus 5. Coronary artery disease 6. Hypertension 7. Hyperlipidemia Plan: Continue with IV antibiotics per recommendation of infectious disease. Continu e with local wound care. At this time there is no indication for any vascular surgical intervention. Patient is recommended to follow-up with Dr. Kumar in the office as an outpatient in one week. Pain is for discharge today with outpatient follow-up. Thank you for this kind referral and the opportunity to participate in the care of your patient. This consultation was discussed with Dr. Diaz. The impression and plan of care have been directed as dictated.
[2019-11-28 11:24] LABS: Erythrocyte Sedimentation Rate 17 mm/Hr (0-20)
[2019-11-28 11:35] LABS: Glucose,Whole Blood 136 mg/dL (75-99)
--- NOTE | 2019-11-28 12:13 | CDI ---
Documentation Clarification Form Date: 11/28/2019 12:03:26 PM From: Rosalba RodriguezMELA au, CCDS Admit Date: 11/22/2019 05:34:00 PM Patient Name: Chema Mckeon Visit Number: [id number] Discharge Date: ATTENTION: The Clinical Documentation Specialists (CDI) and [facility] Coding Staff appreciate your assistance in clarifying documentation. Please respond to the clarification below the line at the bottom and electronically sign. The CDI & [facility] Coding staff will review the response and follow-up if needed. Please note: Queries are made part of the Legal Health Record. If you have any questions, please contact the author of this message via ITS. Dr. Alfredo Carbone: Per the 11/27 Discharge Summary and preceding Attending Progress Notes starting on 11/24, the following is documented: "Wet gangrene of the right second toe with secondary cellulitis of right foot, failed outpatient treatment, status post bedside debridement, preliminary tissue culture reporting presumptive staph aureus." The debridement is not specifically described. History/Risk Factors: DM II, CAD status post CABG, Hypertension, Hyperlipidemia, GERD, Chronic Intermittent Asthma, Osteoarthritis & BPH. Clinical Indicators: Patient presented to the ED with right foot pain, cellulitis & second digit right foot infection with low grade fever. Started Keflex week prior per his PCP. Started on antibiotics, Infectious Disease & Vascular Surgery was consulted. Osteomyelitis ruled out, DVT of the right leg ruled out. Vascular Surgery consult: No surgery or intervention was planned. Preliminary Tissue Culture 11/24: Final: Staphylococcus aureus. Treatment: IV Unasyn, IV Vancomycin, Dakin solution, dressing changes & Silvadene cream q12. Swab culture was done on 11/24. Discharge is pending PICC line placement for OP antibiotic treatment. Five elements required for accurate and compliant documentation of a debridement: 1. Technique used (e.g., excisional, excised, cutting, etc.) 2. Instrument(s) used (e.g., scalpel, curette, etc.) 3. Nature of the tissue removed (e.g., necrotic, devitalized tissues, non- viable tissue, etc.) 4. Appearance and size of the wound (e.g., down to fresh bleeding tissue, 7cm x 10cm, etc.) 5. Depth of the debridement* (e.g., skin, subcutaneous tissue, fascia, muscle, bone, etc.) In order to capture the severity of condition and code the appropriate procedure; could you please document the following: Excisional debridement (the removal of necrotic, devitalized tissue or slough by means of cutting away of tissue) Non-excisional debridement (the removal of necrotic, devitalized tissue or slough by means of flushing, brushing, or washing. (Irrigation) Other; please specify Unable to determine (Last Revision: May 2017) I DID NOT DEBRIDE THIS WOUND DR RAM DID MTDD
[2019-11-28 14:19] LABS: African American GFR (CKD) 63.1 (60.0-200.0); Anion Gap 9.2 mmol/L (4.00-12.00); BUN/Creat Ratio 19.17 Ratio (12.00-20.00); Calcium 9.1 mg/dL (8.7-10.3); Carbon Dioxide 25.8 mmol/L (21.6-31.8); Non-African American GFR(CKD) 54.4 (60.0-200.0); Potassium 4.2 mmol/L (3.5-5.5)
--- NOTE | 2019-11-28 16:24 | IR ---
EXAMINATION TYPE: IR cvc insert >=5 years DATE OF EXAM: 11/28/2019 COMPARISON: NONE CLINICAL HISTORY: Infection Needs long-term intravenous access for antibiotics. PROCEDURE: Hand hygiene obtained with soap and water and alcohol-based hand rub. After informed consent, the skin overlying the left basilic vein was localized with ultrasound and no waleska to be compressible and patent. An ultrasound image was obtained and submitted on the patient's c lay. The overlying skin was prepped and draped and Lidocaine was used for local anesthesia. A skin nichol was made with a scalpel. Access was gained to the vein under ultrasound guidance with a 21 gau ge needle and a 0.018 inch wire was advanced. Access site was dilated with Peel-Away sheath and cath eter tailored to the appropriate length and advanced such that the distal tip is at the cavoatrial ju nction. Spot image was obtained verifying placement. Catheter was fixed to the skin and a sterile d ressing was placed following hemostasis. Catheter was aspirated and flushed with saline. Patient wa s discharged in stable condition without complication.Maximal barrier technique is utilized. Ultraso und image is documented on the chart. Ultrasound used with sterile technique. Fluoro time and fluoroscopic images submitted to document procedure: Or 0.3 minutes fluoroscopy time, 6 intraoperative images document the procedure IMPRESSION: STATUS POST ULTRASOUND AND FLUOROSCOPIC GUIDED PICC LINE PLACEMENT, READY FOR USE. THIS PROCEDURE WAS PERFORMED BY THE UNDERSIGNED.
[2019-11-28 16:42] LABS: C Reactive Protein 1.5 mg/dL (0.0-0.8)
[2019-11-28] MEDS ORDERED: ERTAPENEM 1 GM in SODIUM CHLORIDE 0.9% 50 ML IVPB SCH (17:00)
[2019-11-28 17:19] LABS: Glucose,Whole Blood 102 mg/dL (75-99)
[2019-11-28 21:44] LABS: Glucose,Whole Blood 135 mg/dL (75-99)
[2019-11-29 05:08] VITALS: BP 149/59; PULSE 70; RESP 16; TEMP 97.9
[2019-11-29 07:11] LABS: Glucose,Whole Blood 119 mg/dL (75-99)
[2019-11-29] MEDS: INSULIN ASPART (NovoLOG) 100 UNIT/ML VIAL SQ SCH (07:19)
[2019-11-29] MEDS: TAMSULOSIN 0.4 MG CAP.ER.24H PO SCH (07:44)
[2019-11-29] MEDS: PANTOPRAZOLE 40 MG TABLET PO SCH (07:44)
[2019-11-29] MEDS: MONTELUKAST 10 MG TAB PO SCH (07:45)
[2019-11-29] MEDS: LINAGLIPTIN 5 MG TABLET PO SCH (07:45)
[2019-11-29] MEDS: SODIUM HYPOCHLORITE 0.25% 480 ML BOT MISCELLANE SCH (07:45)
[2019-11-29] MEDS ORDERED: ERTAPENEM 1 GM in SODIUM CHLORIDE 0.9% 50 ML IVPB SCH (09:00)
[2019-11-29 09:06] LABS: African American GFR (CKD) 70.1 (60.0-200.0); Non-African American GFR(CKD) 60.5 (60.0-200.0)
[2019-11-29 12:49] VITALS: BMI 27.3
--- NOTE | 2019-11-30 08:51 | CDI ---
Documentation Clarification Form Date: 11/30/19 From: [employer] Phone: If you have a question about this query, please contact Maria Dolores Ayala, [employer] Installer at [phone] between 8am and 5pm. Admit Date: 11/22/19 Discharge Date:11/29/19 Patient Name: Chema Mckeon Visit Number: [id number] ATTENTION: The Clinical Documentation Specialists (CDI) and [facility] Coding Staff appreciate your assistance in clarifying documentation. Please respond to the clarification below the line at the bottom and electronically sign. The CDI & [facility] Coding staff will review the response and follow-up if needed. Please note: Queries are made part of the Legal Health Record. If you have any questions, please contact the author of this message via ITS. Dear Dr. Carbone The patient presented with the following: cellulitis of the right foot with wet gangrene History/Risk Factors: Second digit of right foot with pimple, DM Clinical Indicators: Erythema, edema and pain of the right foot Lab findings: Glucose 132, C-Reactive Protein Radiology findings: XR Right foot - Soft tissue swelling. 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 No definite sign of osteomyelitis. US Venous dopler LE right - No evidence of deep vein thrombosis in the right leg. Right inguinal lymph node is noted. Vital Signs: T. 98.9, P. 84, R. 20, BP 172/64 Treatment: IV Unasyn, IV Vancomycin Consults: Infectious disease - right foot infection and especially his right second toe with secondary cellulitis. Wet gangrene In your professional opinion, can you please clarify if the cellulitis and the wet gangrene are ----->>> Associated with Diabetes Mellitus Not associated with Diabetes Mellitus Other, please specify Unable to determine MTDD
--- NOTE | 2019-12-05 07:20 | CDI ---
Documentation Clarification Form Date: 11/28/2019 12:03:00 PM From: Rosalba RodriguezMELA au, CCDS Admit Date: 11/22/2019 05:34:00 PM Patient Name: Chema Mckeon Visit Number: [id number] Discharge Date: 11/29/2019 10:58:00 AM ATTENTION: The Clinical Documentation Specialists (CDI) and [facility] Coding Staff appreciate your assistance in clarifying documentation. Please respond to the clarification below the line at the bottom and electronically sign. The CDI & [facility] Coding staff will review the response and follow-up if needed. Please note: Queries are made part of the Legal Health Record. If you have any questions, please contact the author of this message via ITS. Dr. Kenneth Morales: Per the 11/27 Discharge Summary and preceding Attending Progress Notes, the following is documented: "Wet gangrene of the right second toe with secondary cellulitis of right foot, failed outpatient treatment, status post bedside debridement, preliminary tissue culture reporting presumptive staph aureus." The debridement is not specifically described. History/Risk Factors: DM II, CAD status post CABG, Hypertension, Hyperlipidemia, GERD, Chronic Intermittent Asthma, Osteoarthritis & BPH. Clinical Indicators: Patient presented to the ED with right foot pain, cellulitis & second digit right foot infection with low grade fever. Started Keflex week prior per his PCP. Started on antibiotics, Infectious Disease & Vascular Surgery was consulted. Osteomyelitis ruled out, DVT of the right leg ruled out. Vascular Surgery consult: No surgery or intervention was planned. Preliminary Tissue Culture 11/24: Final: Staphylococcus aureus. Treatment: IV Unasyn, IV Vancomycin, Dakin solution, dressing changes & Silvadene cream q12. Swab culture was done on 11/24. Discharge is pending PICC line placement for OP antibiotic treatment. Five elements required for accurate and compliant documentation of a debridement: 1. Technique used (e.g., excisional, excised, cutting, etc.) 2. Instrument(s) used (e.g., scalpel, curette, etc.) 3. Nature of the tissue removed (e.g., necrotic, devitalized tissues, non- viable tissue, etc.) 4. Appearance and size of the wound (e.g., down to fresh bleeding tissue, 7cm x 10cm, etc.) 5. Depth of the debridement* (e.g., skin, subcutaneous tissue, fascia, muscle, bone, etc.) In order to capture the severity of condition and code the appropriate procedure; could you please document the following: Excisional debridement (the removal of necrotic, devitalized tissue or slough by means of cutting away of tissue) Non-excisional debridement (the removal of necrotic, devitalized tissue or slough by means of flushing, brushing, or washing. (Irrigation) Other; please specify Unable to determine Excisional MTDD
--- NOTE | 2020-01-08 15:10 | CDI ---
Documentation Clarification Form Date: 01/08/20 From: [employer] Phone: If you have a question about this query, please contact Maria Dolores Ayala, [employer] at [phone] between 8am and 5pm. Admit Date: 11/22/19 Discharge Date:11/29/19 Patient Name: Chema Mckeon Visit Number: ATTENTION: The Clinical Documentation Specialists (CDI) and [facility] Coding Staff appreciate your assistance in clarifying documentation. Please respond to the clarification below the line at the bottom and electronically sign. The CDI & [facility] Coding staff will review the response and follow-up if needed. Please note: Queries are made part of the Legal Health Record. If you have any questions, please contact the author of this message via ITS. Dear Dr. Morales Per the 11/27 Discharge Summary and preceding Attending Progress Notes, the following is documented: "Wet gangrene of the right second toe with secondary cellulitis of right foot, failed outpatient treatment, status post bedside debridement, preliminary tissue culture reporting presumptive staph aureus." The debridement is described as excisional in your previous query but the depth of the debridement was not specified. History/Risk Factors: DM II, CAD status post CABG, Hypertension, Hyperlipidemia, GERD, Chronic Intermittent Asthma, Osteoarthritis & BPH. Clinical Indicators: Patient presented to the ED with right foot pain, cellulitis & second digit right foot infection with low grade fever. Started Keflex week prior per his PCP. Started on antibiotics, Infectious Disease & Vascular Surgery was consulted. Osteomyelitis ruled out, DVT of the right leg ruled out. Vascular Surgery consult: No surgery or intervention was planned. Preliminary Tissue Culture 11/24: Final: Staphylococcus aureus. Treatment: IV Unasyn, IV Vancomycin, Dakin solution, dressing changes & Silvadene cream q12. Swab culture was done on 11/24. Discharge is pending PICC line placement for OP antibiotic treatment. Excisional debridement at bedside In order to capture the severity of condition and code the appropriate procedure; could you please document the depth of the excisional debridement: Skin Subcutaneous tissue and fascia Muscle Bone Other; please specify Unable to determine subq MTDD
== END 2019-11-29 10:58 | disposition home or self-care (01) | DRG 571 ==
LOC: EC 15:35 → 6NMEDSUR 17:34
PROVIDERS: ADMIT Family Medicine; ATTEND Family Medicine
PROC: 0JBQ0ZZ Excision of Right Foot Subcutaneous Tissue and Fascia, Open Approach (ICD-10-PCS; principal; 2019-11-25)
PROC: 02HV33Z Insertion of Infusion Device into Superior Vena Cava, Percutaneous Approach (ICD-10-PCS; 2019-11-28)
DX: L03.115 Cellulitis of right lower limb (principal); E11.52 Type 2 diabetes mellitus with diabetic peripheral angiopathy with gangrene; I96 Gangrene, not elsewhere classified; E78.5 Hyperlipidemia, unspecified; I10 Essential (primary) hypertension; I25.10 Atherosclerotic heart disease of native coronary artery without angina pectoris; J45.20 Mild intermittent asthma, uncomplicated; K21.9 Gastro-esophageal reflux disease without esophagitis; M19.90 Unspecified osteoarthritis, unspecified site; N40.0 Benign prostatic hyperplasia without lower urinary tract symptoms; B95.61 Methicillin susceptible Staphylococcus aureus infection as the cause of diseases classified elsewhere; Z79.1 Long term (current) use of non-steroidal anti-inflammatories (NSAID); Z79.899 Other long term (current) drug therapy; Z95.1 Presence of aortocoronary bypass graft; Z95.4 Presence of other heart-valve replacement; Z98.890 Other specified postprocedural states; Z87.39 Personal history of other diseases of the musculoskeletal system and connective tissue
CPT/HCPCS: 36415; 36573; 80048; 80053; 80202; 82565; 83036; 83605; 83735; 85025; 85652; 86140; 87040; 87070; 87077; 87186; 87205; 93923; 96365; 96366; 96367; 99285

== ENCOUNTER 2019-12-01 14:21 | Inpatient (IN) | payer MEDICARE, BC ==
--- NOTE | 2019-12-01 14:57 | ED ---
Skin/Abscess/FB HPI - General Chief complaint: Skin/Abscess/Foreign Body Stated complaint: Foot pain Time Seen by Provider: 12/01/19 14:39 Source: patient, RN notes reviewed Mode of arrival: ambulatory Limitations: no limitations - History of Present Illness Initial comments: 84-year-old male presents emergency Department with chief complaint of right fo ot second toe infection. Patient states that he was in the hospital is on current IV antibiotics. He states that he's noticed increased blistering, drainage, increased redness. Patient states the pain is starting to return. Patient was seen in the hospital by infectious disease, primary care and vascular surgeon. Patient states that he is a diabetic. Patient is concerned has a redness and blistering is worsening after his antibiotic treatment this morning. He is unsure what he is on. - Related Data Home Medications Medication Instructions Recorded Confirmed Omeprazole [PriLOSEC] 20 mg PO BID 04/17/14 11/22/19 Simvastatin [Zocor] 40 mg PO HS 04/17/14 11/22/19 lisinopriL [Zestril] 1.25 mg PO DAILY 04/17/14 11/22/19 Tamsulosin HCl [Flomax] 0.4 mg PO BID 01/17/18 11/22/19 Cholecalciferol [Vitamin D3 (25 1,000 unit PO DAILY 11/22/19 11/22/19 Mcg = 1000 Iu)] Montelukast [Singulair] 10 mg PO DAILY 11/22/19 11/22/19 Previous Rx's Medication Instructions Recorded Acetaminophen Tab [Tylenol] 650 mg PO Q6HR PRN tab 11/28/19 Linagliptin [Tradjenta] 5 mg PO DAILY #30 tablet 11/28/19 cefTRIAXone [Rocephin] 2 gm IVPB Q12H #40 bag 11/29/19 Allergies Allergy/AdvReac Type Severity Reaction Status Date / Time No Known Allergies Allergy Verified 12/01/19 14:26 Review of Systems ROS Statement: Those systems with pertinent positive or pertinent negative responses have been documented in the HPI. ROS Other: All systems not noted in ROS Statement are negative. Past Medical History Past Medical History: Asthma, Coronary Artery Disease (CAD), Diabetes Mellitus, GERD/Reflux, Hyperlipidemia, Hypertension, Osteoarthritis (OA), Prostate Disorder Additional Past Medical History / Comment(s): osteoarthritis History of Any Multi-Drug Resistant Organisms: None Reported Past Surgical History: Coronary Bypass/CABG, Heart Catheterization Additional Past Surgical History / Comment(s): CABG-3 vessels, pericaridal tissue heart valve, shelli. carpal tunnel repair Past Anesthesia/Blood Transfusion Reactions: No Reported Reaction Past Psychological History: No Psychological Hx Reported Smoking Status: Never smoker Past Alcohol Use History: None Reported Past Drug Use History: None Reported General Exam Limitations: no limitations General appearance: alert, in no apparent distress Head exam: Present: atraumatic, normocephalic, normal inspection Eye exam: Present: normal appearance, PERRL, EOMI. Absent: scleral icterus, conjunctival injection, periorbital swelling Respiratory exam: Present: normal lung sounds bilaterally. Absent: respiratory distress, wheezes, rales, rhonchi, stridor Cardiovascular Exam: Present: regular rate, normal rhythm, normal heart sounds. Absent: systolic murmur, diastolic murmur, rubs, gallop, clicks Extremities exam: Present: other (Right foot second digit there is erythema that extends proximal to the digits. Neurovascular intact there is blistering with purulent drainage, mild blood noted) Skin exam: Present: warm Course Vital Signs 12/01/19 14:24 Temperature 98.0 F Pulse Rate 86 Respiratory 20 Rate Blood Pressure 165/72 O2 Sat by Pulse 99 Oximetry Medical Decision Making - Medical Decision Making 84-year-old male presented for recheck of his toe infection. Patient having worsening symptoms in which he's had increased drainage, redness. This is conc erning as patient is on outpatient antibiotics and is feeling outpatient treatment. Case discussed with Dr. Hinkle which the patient will be readmitted with consult to vascular. - Lab Data Result diagrams: 12/01/19 15:14 Lab Results 12/01/19 Range/Units 15:14 WBC 9.2 (3.8-10.6) k/uL RBC 5.24 (4.30-5.90) m/uL Hgb 15.1 (13.0-17.5) gm/dL Hct 47.7 (39.0-53.0) % MCV 91.1 (80.0-100.0) fL MCH 28.8 (25.0-35.0) pg MCHC 31.6 (31.0-37.0) g/dL RDW 13.2 (11.5-15.5) % Plt Count 242 (150-450) k/uL Neutrophils % 71 % Lymphocytes % 19 % Monocytes % 6 % Eosinophils % 2 % Basophils % 1 % Neutrophils # 6.6 (1.3-7.7) k/uL Lymphocytes # 1.7 (1.0-4.8) k/uL Monocytes # 0.6 (0-1.0) k/uL Eosinophils # 0.2 (0-0.7) k/uL Basophils # 0.1 (0-0.2) k/uL Disposition Clinical Impression: Cellulitis of right foot Disposition: ADMITTED IP TO THIS HOSP Condition: Fair Referrals: Alfredo Carbone MD [Primary Care Provider] - 1-2 days
[2019-12-01 15:52] LABS: Basophils # (A) 0.1 k/uL (0-0.2); Basophils % (A) 1 %; Eosinophils # (A) 0.2 k/uL (0-0.7); Eosinophils % (A) 2 %; HCT 47.7 % (39.0-53.0); HGB 15.1 gm/dL (13.0-17.5); Lymphocytes # (A) 1.7 k/uL (1.0-4.8); Lymphocytes % (A) 19 %; MCH 28.8 pg (25.0-35.0); MCHC 31.6 g/dL (31.0-37.0); MCV 91.1 fL (80.0-100.0); Mean Platelet Volume 8.4; Monocytes # (A) 0.6 k/uL (0-1.0); Monocytes % (A) 6 %; Neutrophils # (A) 6.6 k/uL (1.3-7.7); Neutrophils % (A) 71 %; Platelet Count 242 k/uL (150-450); RBC 5.24 m/uL (4.30-5.90); RDW 13.2 % (11.5-15.5); WBC 9.2 k/uL (3.8-10.6)
--- NOTE | 2019-12-01 15:52 | XR ---
EXAMINATION TYPE: XR toes RT DATE OF EXAM: 12/01/2019 COMPARISON: NONE HISTORY: Second toe infection TECHNIQUE: 3 views FINDINGS: There is some soft tissue swelling of the second toe. I see no fracture nor dislocation. Th ere is no focal bone destruction. IMPRESSION: Soft tissue swelling. No sign of osteomyelitis. Moderately severe osteoarthritis at the first MP joint.
[2019-12-01] MEDS ORDERED: ONDANSETRON 4 MG/2 ML VIAL IVP PRN (15:59)
[2019-12-01] MEDS ORDERED: HYDROcodone/APAP 5-325MG 1 EACH TAB PO PRN (15:59)
[2019-12-01] MEDS ORDERED: ACETAMINOPHEN TAB 325 MG TAB PO PRN (15:59)
[2019-12-01] MEDS ORDERED: NALOXONE 0.4 MG/ML 1 ML VIAL IV PRN (15:59)
[2019-12-01] MEDS ORDERED: PIPERACILLIN-TAZOBACTAM 3.375 GM in SODIUM CHLORIDE 0.9% 100 ML IVPB STA (16:00)
[2019-12-01] MEDS ORDERED: VANCOMYCIN IV PER PHARMACY 1 EACH MISC MISCELLANE PRN (16:01)
[2019-12-01 16:08] LABS: Albumin 3.7 g/dL (3.5-5.0); C Reactive Protein 10.6 mg/L (<10.0); Calcium 9.5 mg/dL (8.4-10.2); Potassium 4.3 mmol/L (3.5-5.1); Total Bilirubin 0.4 mg/dL (0.2-1.3); Total Protein 6.8 g/dL (6.3-8.2)
[2019-12-01] MEDS ORDERED: VANCOMYCIN 1,500 MG in SODIUM CHLORIDE 0.9% 250 ML IVPB ONE (16:15)
[2019-12-01 17:38] LABS: Glucose,Whole Blood 168 mg/dL (75-99)
[2019-12-01 17:40] LABS: Glucose,Whole Blood 112 mg/dL (75-99)
[2019-12-01 19:43] LABS: Glucose,Whole Blood 130 mg/dL (75-99)
[2019-12-01] MEDS ORDERED: cefTRIAXone 2 GM VIAL IVPB SCH (22:00)
[2019-12-02] MEDS: PIPERACILLIN-TAZOBACTAM 3.375 GM in SODIUM CHLORIDE 0.9% 100 ML IVPB SCH ×2 (02:46→09:08)
[2019-12-02 07:24] LABS: Glucose,Whole Blood 115 mg/dL (75-99)
[2019-12-02] MEDS ORDERED: VANCOMYCIN 1,500 MG in SODIUM CHLORIDE 0.9% 250 ML IVPB SCH (09:00)
[2019-12-02] MEDS: CHOLECALCIFEROL 1,000 UNIT TAB PO SCH (09:09)
[2019-12-02] MEDS: PANTOPRAZOLE 40 MG TABLET PO SCH ×2 (09:09→20:26)
[2019-12-02] MEDS: TAMSULOSIN 0.4 MG CAP.ER.24H PO SCH ×2 (09:10→20:26)
[2019-12-02] MEDS: LINAGLIPTIN 5 MG TABLET PO SCH (09:10)
[2019-12-02] MEDS: MONTELUKAST 10 MG TAB PO SCH (09:12)
[2019-12-02] MEDS ORDERED: ACETAMINOPHEN TAB 325 MG TAB PO PRN (10:50)
--- NOTE | 2019-12-02 11:03 | P.HPIM ---
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 Patient presented to the hospital emergency room stating he was a diabetic and she had concerns regarding his diabetic ulcer/wound Review of Systems Constitutional: Reports as per HPI Ears, nose, mouth and throat: Reports as per HPI Cardiovascular: Reports as per HPI Respiratory: Reports as per HPI Gastrointestinal: Reports as per HPI Genitourinary: Reports as per HPI Musculoskeletal: Reports as per HPI Integumentary: Reports as per HPI, Reports color changes, Reports wounds (2nd toe rt foot) Neurological: Reports as per HPI Psychiatric: Reports as per HPI Past Medical History Past Medical History: Asthma, Coronary Artery Disease (CAD), Diabetes Mellitus, GERD/Reflux, Hyperlipidemia, Hypertension, Osteoarthritis (OA), Prostate Disorder Additional Past Medical History / Comment(s): osteoarthritis History of Any Multi-Drug Resistant Organisms: None Reported Date of last positivie culture/infection: 11/25/2019 MDRO Source:: Staph aureus [id number], wound right foot second toe Past Surgical History: Coronary Bypass/CABG, Heart Catheterization Additional Past Surgical History / Comment(s): CABG-3 vessels, pericaridal tissue heart valve, shelli. carpal tunnel repair Past Anesthesia/Blood Transfusion Reactions: No Reported Reaction Past Psychological History: No Psychological Hx Reported Smoking Status: Never smoker Past Alcohol Use History: None Reported Past Drug Use History: None Reported - Past Family History Mother Additional Family Medical History / Comment(s): heart disease Father Additional Family Medical History / Comment(s): lung CA Medications and Allergies Home Medications Medication Instructions Recorded Confirmed Type Omeprazole [PriLOSEC] 20 mg PO BID 04/17/14 12/01/19 History Simvastatin [Zocor] 40 mg PO HS 04/17/14 12/01/19 History lisinopriL [Zestril] 1.25 mg PO DAILY 04/17/14 12/01/19 History Tamsulosin HCl [Flomax] 0.4 mg PO BID 01/17/18 12/01/19 History Cholecalciferol [Vitamin D3 (25 1,000 unit PO DAILY 11/22/19 12/01/19 History Mcg = 1000 Iu)] Montelukast [Singulair] 10 mg PO DAILY 11/22/19 12/01/19 History Acetaminophen Tab [Tylenol] 650 mg PO Q6HR PRN tab 11/28/19 12/01/19 Rx Linagliptin [Tradjenta] 5 mg PO DAILY #30 tablet 11/28/19 12/01/19 Rx cefTRIAXone [Rocephin] 2 gm IVPB Q12H #40 bag 11/29/19 12/01/19 Rx Allergies Allergy/AdvReac Type Severity Reaction Status Date / Time No Known Allergies Allergy Verified 12/01/19 16:09 Physical Exam Osteopathic Statement: *. No significant issues noted on an osteopathic structural exam other than those noted in the History and Physical/Consult. Vitals: Vital Signs Temp Pulse Pulse Resp BP BP Pulse Ox 12/02/19 05:08 98.2 F 75 16 117/53 95 12/01/19 20:53 98.3 F 72 16 162/70 96 12/01/19 16:56 97.7 F 71 12 162/73 96 12/01/19 16:37 72 18 136/72 98 12/01/19 15:26 61 18 136/73 98 12/01/19 14:24 98.0 F 86 20 165/72 99 Intake and Output 12/01/19 12/02/19 12/02/19 22:59 06:59 14:59 Intake Total 500 Balance 500 Intake: Oral 500 Other: # Voids 2 Weight 82.554 kg General: [Patient awake, alert and oriented times 3. Patient in no acute distress.] HEENT: [PERRL. EOMI. No pharyngeal erythema or exudate.] Neck: [No adenopathy.] Cardiac: [Heart regular in rate and rhythm. No S3. No S4. No clicks, rubs. No murmur.] Lungs: [Clear to auscultation bilaterally.] Abdomen: [No mass. No organomegaly. Bowel sounds presnt and normoactive in all 4 quadrants.] Extremes: [No edema no cyanosis no claudication normal pulses dressing on the right foot : Normal male genitalia Musculoskeletal: [No joint erythema, edema or tenderness.] Skin: [No rash.] Neurologic: [No lateralizing deficits. CN II - XII grossly intact.] Lymphatic: [No adenopathy.] Results CBC & Chem 7: 12/01/19 15:14 12/01/19 15:14 Labs: Abnormal Lab Results - Last 24 Hours (Table) 12/01/19 12/01/19 12/01/19 Range/Units 15:14 17:37 17:38 BUN 29 H (9-20) mg/dL Glucose 143 H (74-99) mg/dL POC Glucose (mg/dL) 168 H 112 H (75-99) mg/dL C-Reactive Protein 10.6 H (<10.0) mg/L 12/01/19 12/02/19 Range/Units 19:42 07:21 BUN (9-20) mg/dL Glucose (74-99) mg/dL POC Glucose (mg/dL) 130 H 115 H (75-99) mg/dL C-Reactive Protein (<10.0) mg/L Microbiology - Last 24 Hours (Table) 12/01/19 16:30 Gram Stain - Preliminary Foot - Right Wound Culture - Preliminary Thrombosis Risk Factor Assmnt - Choose All That Apply Any of the Below Risk Factors Present?: Yes Each Risk Factor Represents 3 Points: Age 75 years or older Thrombosis Risk Factor Assessment Total Risk Factor Score: 3 Thrombosis Risk Factor Assessment Level: Moderate Risk Assessment and Plan (1) Cellulitis of right foot Current Visit: Yes Status: Acute Code(s): L03.115 - CELLULITIS OF RIGHT LOWER LIMB SNOMED Code(s): 624951720 (2) Essential (primary) hypertension Current Visit: No Status: Acute Code(s): I10 - ESSENTIAL (PRIMARY) HYPERTENSION SNOMED Code(s): 30745736 (3) Type 2 diabetes mellitus without complications Current Visit: No Status: Acute Code(s): E11.9 - TYPE 2 DIABETES MELLITUS WITHOUT COMPLICATIONS SNOMED Code(s): 817752497 (4) Wet gangrene Current Visit: No Status: Acute Code(s): I96 - GANGRENE, NOT ELSEWHERE CLASSIFIED SNOMED Code(s): 944780882 Plan: Patient was admitted last night via emergency room Reconsultation with vascular surgery Reevaluation by infectious disease Elevated C-reactive protein patient does have an infection and is being treated Continue IV antibiotics patient has a PICC line We will continue to follow closelyq Time with Patient: Greater than 30
[2019-12-02 12:11] LABS: Glucose,Whole Blood 111 mg/dL (75-99)
[2019-12-02 13:05] VITALS: BMI 27.6
[2019-12-02 17:28] LABS: Glucose,Whole Blood 109 mg/dL (75-99)
[2019-12-02 20:50] LABS: Glucose,Whole Blood 128 mg/dL (75-99)
[2019-12-02] MEDS ORDERED: ATORVASTATIN 20 MG TAB PO SCH (21:00)
[2019-12-03 05:42] VITALS: RESP 16
[2019-12-03 07:07] LABS: Glucose,Whole Blood 122 mg/dL (75-99)
[2019-12-03] MEDS: CHOLECALCIFEROL 1,000 UNIT TAB PO SCH (09:12)
[2019-12-03] MEDS: PANTOPRAZOLE 40 MG TABLET PO SCH (09:12)
[2019-12-03] MEDS: LINAGLIPTIN 5 MG TABLET PO SCH (09:12)
[2019-12-03] MEDS: TAMSULOSIN 0.4 MG CAP.ER.24H PO SCH (09:12)
[2019-12-03] MEDS: MONTELUKAST 10 MG TAB PO SCH (09:16)
[2019-12-03 11:41] LABS: Glucose,Whole Blood 113 mg/dL (75-99)
[2019-12-03 11:44] VITALS: BP 152/74; PULSE 66; TEMP 97.5
--- NOTE | 2019-12-03 14:10 | P.GSCN ---
History of Present Illness Consult date: 12/03/19 Reason for Consult: Right foot diabetic ulcer, 2nd toe Requesting physician: Alfredo Carbone History of present illness: This is a pleasant 84-year-old male patient who was recently admitted to the hospital for colitis of the right foot with the right second toe diabetic wound. The patient was discharged home with a PICC line and scheduled for IV antibiotics. The patient states he noticed some increased blistering and drainage near the toe so he returned to the hospital for further evaluation. He denies any fevers. He was scheduled to see Dr. Kuamr this week in the office for further evaluation and discussion of possible amputation. His past medical history includes asthma, coronary artery disease, diabetes mellitus, GERD, hyperlipidemia, hypertension, osteoarthritis and prostate disorder. Review of Systems 14 point review of systems was completed all pertinent positives and negatives as stated in the HPI. Past Medical History Past Medical History: Asthma, Coronary Artery Disease (CAD), Diabetes Mellitus, GERD/Reflux, Hyperlipidemia, Hypertension, Osteoarthritis (OA), Prostate Disorder Additional Past Medical History / Comment(s): osteoarthritis History of Any Multi-Drug Resistant Organisms: None Reported Year Discovered:: 11/25/2019 MDRO Source:: Staph aureus [id number]-[id number], wound right foot second toe Past Surgical History: Coronary Bypass/CABG, Heart Catheterization Additional Past Surgical History / Comment(s): CABG-3 vessels, pericaridal tissue heart valve, shelli. carpal tunnel repair Past Anesthesia/Blood Transfusion Reactions: No Reported Reaction Past Psychological History: No Psychological Hx Reported Smoking Status: Never smoker Past Alcohol Use History: None Reported Past Drug Use History: None Reported - Past Family History Mother Additional Family Medical History / Comment(s): heart disease Father Additional Family Medical History / Comment(s): lung CA Medications and Allergies Home Medications Medication Instructions Recorded Confirmed Type Omeprazole [PriLOSEC] 20 mg PO BID 04/17/14 12/01/19 History Simvastatin [Zocor] 40 mg PO HS 04/17/14 12/01/19 History lisinopriL [Zestril] 1.25 mg PO DAILY 04/17/14 12/01/19 History Tamsulosin HCl [Flomax] 0.4 mg PO BID 01/17/18 12/01/19 History Cholecalciferol [Vitamin D3 (25 1,000 unit PO DAILY 11/22/19 12/01/19 History Mcg = 1000 Iu)] Montelukast [Singulair] 10 mg PO DAILY 11/22/19 12/01/19 History Acetaminophen Tab [Tylenol] 650 mg PO Q6HR PRN tab 11/28/19 12/01/19 Rx Amoxic-Pot Clav 875-125Mg 1 tab PO Q12HR 1 Days #14 tab 12/03/19 Rx [Augmentin 875-125] sitaGLIPtin PHOSPHATE [Januvia] 50 mg PO DAILY #30 tab 12/03/19 Rx Allergies Allergy/AdvReac Type Severity Reaction Status Date / Time No Known Allergies Allergy Verified 12/01/19 16:09 Surgical - Exam Vital Signs Temp Pulse Resp BP Pulse Ox 98.0 F 86 20 165/72 99 12/01/19 14:24 12/01/19 14:24 12/01/19 14:24 12/01/19 14:24 12/01/19 14:24 General appearance: The patient is alert, oriented, in no acute distress. HET: Head is normocephalic and atraumatic. Neck: Supple without lymphadenopathy. Trachea midline. Heart: S1 S2. Regular rate and rhythm. Lungs: No crackles or wheezes are heard. Abdomen: Soft, nontender, nondistended with bowel sounds. Extremities: Right lower extremity without edema, mild erythema at the proximal aspect of the second toe. Second toe left diabetic ulcer with purulent drainage and tunneling to the bone. Neurological: No focal deficits. Strength and sensation are grossly intact. Results X-ray toes in the right foot show soft tissue swelling, no sign of osteomyel itis. Moderately severe osteoarthritis at the first MP joint. - Labs 12/01/19 15:14 12/01/19 15:14 Abnormal Lab Results - Last 24 Hours (Table) 12/02/19 12/02/19 12/03/19 Range/Units 17:23 20:48 07:01 POC Glucose (mg/dL) 109 H 128 H 122 H (75-99) mg/dL 12/03/19 Range/Units 11:20 POC Glucose (mg/dL) 113 H (75-99) mg/dL Microbiology - Last 24 Hours (Table) 12/01/19 15:14 Blood Culture - Preliminary Blood No Growth after 24 hours 10/24/20 16:30 Gram Stain - Preliminary Foot - Right Wound Culture - Preliminary Presumptive Staph aureus Assessment and Plan Assessment: 1. 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 Diabetes mellitus 3. Coronary artery disease 4. Hypertension 5. Hyperlipidemia Plan: Patient was seen and examined by Dr. Kumar. Patient is stable for discharge home vascular surgical standpoint. Would recommend continued oral antibiotics. Patient will be scheduled for outpatient amputation of the right foot second toe on of this week with Dr. Kumar. Patient is agreeable to plan. Continue local wound care. For this consultation allowing us take part in the plan of care of your patient during his hospital stay. The impression and plan of care has been dictated as directed. Dr. Morales I performed a history and examination of this patient, discussed the same with the dictator. I agree with the dictator's note ,documented as a scribe. Any additional findings or plans will be noted.
[2019-12-03 14:17] LABS: African American GFR (CKD) 70.1 (60.0-200.0); Non-African American GFR(CKD) 60.5 (60.0-200.0)
--- NOTE | 2019-12-03 14:25 | P.DS ---
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 Patient presented to the hospital emergency room stating he was a diabetic and she had concerns regarding his diabetic ulcer/wound. Continues on IV antibiotics. Blood sugars controlled. Evaluated by vascular surgery, recommending patient be discharged home today on oral antibiotics with toe amputation on . Patient is being discharged home in a stable condition with guarded prognosis today on Augmentin and maintaining PICC line for potential IV antibiotics post procedure as per PCP. The impression and plan of care has been dictated as directed. : I performed a history and examination of this patient, discussed the same with the dictator. I agree with the dictator's note ,documented as a scribe. Any additional findings or plans will be noted. Patient Condition at Discharge: Stable Plan - Discharge Summary Discharge Rx Participant: No New Discharge Prescriptions: New Amoxic-Pot Clav 875-125Mg [Augmentin 875-125] 1 tab PO Q12HR 1 Days #14 tab sitaGLIPtin PHOSPHATE [Januvia] 50 mg PO DAILY #30 tab No Action lisinopriL [Zestril] 1.25 mg PO DAILY Simvastatin [Zocor] 40 mg PO HS Omeprazole [PriLOSEC] 20 mg PO BID Tamsulosin HCl [Flomax] 0.4 mg PO BID Cholecalciferol [Vitamin D3 (25 Mcg = 1000 Iu)] 1,000 unit PO DAILY Montelukast [Singulair] 10 mg PO DAILY Acetaminophen Tab [Tylenol] 650 mg PO Q6HR PRN tab PRN Reason: Mild Pain Or Fever > 100.5 Discharge Medication List Omeprazole [PriLOSEC] 20 mg PO BID 04/17/14 [History] Simvastatin [Zocor] 40 mg PO HS 04/17/14 [History] lisinopriL [Zestril] 1.25 mg PO DAILY 04/17/14 [History] Tamsulosin HCl [Flomax] 0.4 mg PO BID 01/17/18 [History] Cholecalciferol [Vitamin D3 (25 Mcg = 1000 Iu)] 1,000 unit PO DAILY 11/22/19 [History] Montelukast [Singulair] 10 mg PO DAILY 11/22/19 [History] Acetaminophen Tab [Tylenol] 650 mg PO Q6HR PRN tab 11/28/19 [Rx] Amoxic-Pot Clav 875-125Mg [Augmentin 875-125] 1 tab PO Q12HR 1 Days #14 tab 12/03/19 [Rx] sitaGLIPtin PHOSPHATE [Januvia] 50 mg PO DAILY #30 tab 12/03/19 [Rx] Follow up Appointment(s)/Referral(s): [facility], [NON-STAFF] - 1 Week Kenneth Morales DO [Doctor of Osteopathic Medicine] - 12/06/19 (Re: Toe amputation. Hospital will call with time, and to register for surgery) Alfredo Carbone MD [Primary Care Provider] - 1 Week (Please call office to set follow up appointment) Patient Instructions/Handouts: Amoxicillin/Clavulanate Potassium (By mouth), Cellulitis (ED), Type 2 Diabetes in Adults: New Diagnosis (ED) Activity/Diet/Wound Care/Special Instructions: PCP, maintain PICC line for potential IV antibiotics post procedure as per PCP. Oral antibiotics recommended per vascular surgery, and Augmentin as per PCP. Maintain wound care as previously ordered.
== END 2019-12-03 17:26 | disposition home health service (06) | DRG 300 ==
LOC: EC 14:21 → 6NMEDSUR 15:58
PROVIDERS: ADMIT Family Medicine; ATTEND Family Medicine
PROC: 0HDMXZZ Extraction of Right Foot Skin, External Approach (ICD-10-PCS; principal; 2019-12-03)
DX: E11.52 Type 2 diabetes mellitus with diabetic peripheral angiopathy with gangrene (principal); L03.115 Cellulitis of right lower limb; I96 Gangrene, not elsewhere classified; E11.628 Type 2 diabetes mellitus with other skin complications; Z79.84 Long term (current) use of oral hypoglycemic drugs; E11.621 Type 2 diabetes mellitus with foot ulcer; E11.622 Type 2 diabetes mellitus with other skin ulcer; B95.61 Methicillin susceptible Staphylococcus aureus infection as the cause of diseases classified elsewhere; E78.5 Hyperlipidemia, unspecified; I10 Essential (primary) hypertension; I25.10 Atherosclerotic heart disease of native coronary artery without angina pectoris; J45.20 Mild intermittent asthma, uncomplicated; L97.519 Non-pressure chronic ulcer of other part of right foot with unspecified severity; K21.9 Gastro-esophageal reflux disease without esophagitis; N40.0 Benign prostatic hyperplasia without lower urinary tract symptoms; Z79.899 Other long term (current) drug therapy; Z80.1 Family history of malignant neoplasm of trachea, bronchus and lung; Z95.1 Presence of aortocoronary bypass graft; Z82.49 Family history of ischemic heart disease and other diseases of the circulatory system; M19.90 Unspecified osteoarthritis, unspecified site
CPT/HCPCS: 36415; 80053; 82565; 83605; 85025; 85652; 86140; 87040; 87070; 87077; 87186; 87205; 99284

== ENCOUNTER 2019-12-06 07:31 | Day surgery (SDC) | payer MEDICARE, BC ==
[2019-12-04 15:41] VITALS: BMI 27.6
[~2019-12-06 07:31] MED LIST: HYDROmorphone 0.5 MG/0.5 ML SYRINGE IVP PRN; LACTATED RINGERS 1,000 ML IV SCH
[2019-12-06 07:54] VITALS: TEMP 97.8
[2019-12-06] MEDS ORDERED: LACTATED RINGERS 1,000 ML IV ONE (07:55)
[2019-12-06] MEDS ORDERED: ONDANSETRON 4 MG/2 ML VIAL ONE (07:56)
[2019-12-06 08:05] LABS: Glucose,Whole Blood 108 mg/dL (75-99)
[2019-12-06] MEDS ORDERED: ONDANSETRON 4 MG/2 ML VIAL IVP ONE (08:07)
--- NOTE | 2019-12-06 08:55 | P.HPIHPCON ---
History of Present Illness H&P Date: 12/06/19 The patient is an 84-year-old male with a past medical history of asthma, coronary artery disease, diabetes, GERD, hyperlipidemia, hypertension, osteoarthritis and a prostate disorder who was recently admitted to the hospital with osteomyelitis and a diabetic foot wound on the second toe of the right foot. He was discharged home at that time with a PICC line and IV antibiotics. After evaluation he was scheduled to see Dr. Kumar and surgery was scheduled for today. He denies any worsening or changes to the wound since last seen by our team. He denies any fevers, chills, nausea, vomiting or issues otherwise Consent for Procedure: I have explained the operation/procedure to the patient, including the risks, benefits, side effects, alternative therapies (including not receiving the proposed treatment or service), the likelihood of the patient achieving his/her goals, and potential recuperation problems for the procedure/sedation/analgesia, as well as any blood products, if indicated. I also explained to the patient the risks, benefits and side effects of the alternatives, as well as the risks related to not receiving the proposed procedure, care, treatment, or services. - Review of Systems Comment: 14 point review of systems performed. Pertinent positives and negatives per the HPI Past Medical History Past Medical History: Asthma, Coronary Artery Disease (CAD), Diabetes Mellitus, GERD/Reflux, Hearing Disorder / Deafness, Hyperlipidemia, Hypertension, Musculoskeletal Disorder, Osteoarthritis (OA), Prostate Disorder, Skin Disorder Additional Past Medical History / Comment(s): Bronchial asthma. Hearing aids. Rt hand tremors. Cellulitis, gangrene, wound to Rt 2nd toe. History of Any Multi-Drug Resistant Organisms: None Reported Date of last positivie culture/infection: None MDRO Source:: None Past Surgical History: Cardiac Valve Replacement, Coronary Bypass/CABG, Heart Catheterization Additional Past Surgical History / Comment(s): CABG-3 vessels, pericaridal tissue heart valve 2010; shelli. carpal tunnel repair, cataracts shelli, PICC Line 11/28/19 Past Anesthesia/Blood Transfusion Reactions: Postoperative Nausea & Vomiting (PONV) Additional Past Anesthesia/Blood Transfusion Reaction / Comment(s): PONV after tonsils as a child. Smoking Status: Former smoker - Past Family History Mother Family Medical History: Coronary Artery Disease (CAD) Additional Family Medical History / Comment(s): heart disease Father Family Medical History: Cancer Additional Family Medical History / Comment(s): lung CA Medications and Allergies Home Medications Medication Instructions Recorded Confirmed Type Omeprazole [PriLOSEC] 20 mg PO BID 04/17/14 12/04/19 History Simvastatin [Zocor] 40 mg PO HS 04/17/14 12/04/19 History lisinopriL [Zestril] 1.25 mg PO DAILY 04/17/14 12/04/19 History Tamsulosin HCl [Flomax] 0.4 mg PO BID 01/17/18 12/04/19 History Cholecalciferol [Vitamin D3 (25 1,000 unit PO DAILY 11/22/19 12/04/19 History Mcg = 1000 Iu)] Acetaminophen Tab [Tylenol] 650 mg PO Q6HR PRN tab 11/28/19 12/04/19 Rx Amoxic-Pot Clav 875-125Mg 1 tab PO Q12HR 1 Days #14 tab 12/03/19 12/04/19 Rx [Augmentin 875-125] Ascorbic Acid [Vitamin C] 500 mg PO DAILY 12/04/19 12/04/19 History Cetirizine HCl [Zyrtec] 5 mg PO DAILY 12/04/19 12/04/19 History Garlic 1 each PO HS 12/04/19 12/04/19 History Meloxicam [Mobic] 7.5 mg PO BID 12/04/19 12/04/19 History sitaGLIPtin [Januvia] 50 mg PO DAILY 12/04/19 12/04/19 History Allergies Allergy/AdvReac Type Severity Reaction Status Date / Time No Known Allergies Allergy Verified 12/04/19 15:00 Surgical - Exam Vital Signs Temp Pulse Resp BP Pulse Ox 97.8 F 87 18 173/81 97 12/06/19 07:52 12/06/19 07:52 12/06/19 07:52 12/06/19 07:52 12/06/19 07:52 Gen. is a pleasant cooperative male in no acute distress HEENT is normocephalic, atraumatic, extraocular motion intact. Hard of hearing. Neck is supple, trachea is midline. No respiratory distress. Heart is regular at this time. Extremities show no clubbing, cyanosis or edema abdomen is soft, flat, nontender nondistended. There are palpable radial, femoral and dorsalis pedis pulses bilaterally. The right second toe is bulbous with some erythema and a wound at the interphalangeal joint. Normal mood and affect. Cranial nerves II through XII grossly intact Results - Labs Abnormal Lab Results - Last 24 Hours (Table) 12/06/19 Range/Units 08:04 POC Glucose (mg/dL) 108 H (75-99) mg/dL Assessment and Plan Assessment: #1 right second toe osteomyelitis #2 diabetic foot wound #3 hypertension #4 diabetes #5 coronary artery disease status post CABG Plan: Given the appearance of the toe and the wound, it was decided he should go for a second toe amputation on the right. We will plan to do this today. Risks and benefits were discussed with the patient who seemingly understands and is willing to proceed as such. I believe we'll decrease or discontinue his IV antibiotics some swelling following surgical resection. Postoperative instructions were given to the patient and his family member at the bedside.
[2019-12-06] MEDS ORDERED: PROPOFOL 10 MG/ML 20 ML VIAL IV ONE (09:30)
[2019-12-06] MEDS ORDERED: fentaNYL (PF) 50 MCG/ML 2 ML AMP ONE (09:30)
[2019-12-06] MEDS ORDERED: MIDAZOLAM 2 MG/2 ML VIAL ONE (09:30)
[2019-12-06] MEDS ORDERED: LIDOCAINE 1% INJ 10MG/ML (20 ML MDV) SQ ONE ×2 (09:43)
--- NOTE | 2019-12-06 10:24 | P.OP ---
Date of Procedure: 12/06/19 Description of Procedure: DATE OF SERVICE: SURGEON: Cherelle Diaz DO [employer]IV[employer] INVESTIGATOR: None PREOPERATIVE DIAGNOSIS: [Diabetic foot ulcer, nonhealing wound, suspected osteomyelitis right second toe]. POSTOPERATIVE DIAGNOSIS: [Same]. OPERATION: [Right] second toe amputation. ANESTHESIA: Mac with local ESTIMATED BLOOD LOSS: 5 mL SPECIMENS REMOVED: Right second toe COMPLICATIONS: None immediately apparent Findings and indications: The patient is an 84-year-old diabetic male with a right second toe wound and suspicion of osteomyelitis. He was initiated on IV antibiotics and continue to have a wounds therefore he was recommended to undergo second toe amputation. He maintains a palpable dorsalis pedis pulse therefore likely will heal. Risks and benefits were discussed DESCRIPTION OF PROCEDURE: . The patient was brought to the operating room and placed in supine position. The right lower extremity was prepped and draped in usual sterile fashion. A preprocedure timeout was performed, all parties were in agreement. After appropriate anesthesia, a field block was performed with 1% lidocaine plain. An elliptical incision was made at the base of the proximal phalanx and deepened through the skin, fat and tendons. The proximal phalanx was dislocated from the metatarsal joint and removed as specimen. The area was irrigated copiously and a rongeur was used to remove the capsular head of the metatarsal. The area was again irrigated. Hemostasis was well controlled and inc ision was approximated with 3-0 vicryl and 3-0 nylon interrupted suture. Dressing applied. The patient tolerated the procedure well. Plan - Discharge Summary Discharge Rx Participant: No New Discharge Prescriptions: New traMADol HCl [Ultram] 50 mg PO Q4-6H PRN #10 tab PRN Reason: Pain No Action lisinopriL [Zestril] 1.25 mg PO DAILY Simvastatin [Zocor] 40 mg PO HS Omeprazole [PriLOSEC] 20 mg PO BID Tamsulosin HCl [Flomax] 0.4 mg PO BID Cholecalciferol [Vitamin D3 (25 Mcg = 1000 Iu)] 1,000 unit PO DAILY Acetaminophen Tab [Tylenol] 650 mg PO Q6HR PRN tab PRN Reason: Mild Pain Or Fever > 100.5 Amoxic-Pot Clav 875-125Mg [Augmentin 875-125] 1 tab PO Q12HR 1 Days #14 tab Ascorbic Acid [Vitamin C] 500 mg PO DAILY Cetirizine HCl [Zyrtec] 5 mg PO DAILY Garlic 1 each PO HS Meloxicam [Mobic] 7.5 mg PO BID sitaGLIPtin [Januvia] 50 mg PO DAILY Discharge Medication List Omeprazole [PriLOSEC] 20 mg PO BID 04/17/14 [History] Simvastatin [Zocor] 40 mg PO HS 04/17/14 [History] lisinopriL [Zestril] 1.25 mg PO DAILY 04/17/14 [History] Tamsulosin HCl [Flomax] 0.4 mg PO BID 01/17/18 [History] Cholecalciferol [Vitamin D3 (25 Mcg = 1000 Iu)] 1,000 unit PO DAILY 11/22/19 [History] Acetaminophen Tab [Tylenol] 650 mg PO Q6HR PRN tab 11/28/19 [Rx] Amoxic-Pot Clav 875-125Mg [Augmentin 875-125] 1 tab PO Q12HR 1 Days #14 tab 12/03/19 [Rx] Ascorbic Acid [Vitamin C] 500 mg PO DAILY 12/04/19 [History] Cetirizine HCl [Zyrtec] 5 mg PO DAILY 12/04/19 [History] Garlic 1 each PO HS 12/04/19 [History] Meloxicam [Mobic] 7.5 mg PO BID 12/04/19 [History] sitaGLIPtin [Januvia] 50 mg PO DAILY 12/04/19 [History] traMADol HCl [Ultram] 50 mg PO Q4-6H PRN #10 tab 12/06/19 [Rx] Follow up Appointment(s)/Referral(s): Cherelle Diaz DO [STAFF PHYSICIAN] - 2 Weeks Activity/Diet/Wound Care/Special Instructions: Heel touch weight bearing as best as possible. Wear post op shoe when ambulating. May shower in 2 days. No soaking. Discharge Disposition: HOME SELF-CARE
[2019-12-06 10:36] VITALS: BP 136/70; PULSE 68; RESP 18
== END 2019-12-06 11:15 | disposition home or self-care (01) ==
LOC: OR 07:31
PROVIDERS: ATTEND Surgery
DX: E11.69 Type 2 diabetes mellitus with other specified complication (principal); M86.9 Osteomyelitis, unspecified; E11.52 Type 2 diabetes mellitus with diabetic peripheral angiopathy with gangrene; I96 Gangrene, not elsewhere classified; J45.909 Unspecified asthma, uncomplicated; I25.10 Atherosclerotic heart disease of native coronary artery without angina pectoris; K21.9 Gastro-esophageal reflux disease without esophagitis; E78.5 Hyperlipidemia, unspecified; I10 Essential (primary) hypertension; M19.90 Unspecified osteoarthritis, unspecified site; H91.90 Unspecified hearing loss, unspecified ear; I73.9 Peripheral vascular disease, unspecified; N40.0 Benign prostatic hyperplasia without lower urinary tract symptoms; Z87.2 Personal history of diseases of the skin and subcutaneous tissue; Z97.4 Presence of external hearing-aid; Z86.69 Personal history of other diseases of the nervous system and sense organs; Z95.1 Presence of aortocoronary bypass graft; Z98.890 Other specified postprocedural states; Z95.3 Presence of xenogenic heart valve; Z98.41 Cataract extraction status, right eye; Z98.42 Cataract extraction status, left eye; Z91.89 Other specified personal risk factors, not elsewhere classified; Z87.891 Personal history of nicotine dependence; Z79.899 Other long term (current) drug therapy; Z79.1 Long term (current) use of non-steroidal anti-inflammatories (NSAID); Z79.84 Long term (current) use of oral hypoglycemic drugs; Z82.49 Family history of ischemic heart disease and other diseases of the circulatory system; Z80.1 Family history of malignant neoplasm of trachea, bronchus and lung
CPT/HCPCS: 88305; 28810; J2250; J0690; J2405; J2001; J3010; J2704

== ENCOUNTER → 2020-11-26 | Outpatient (CLI) | payer MEDICARE, BC ==
[2020-11-26 23:29] LABS: HCT 45.8 % (39.6-50.0); HGB 15.4 g/dL (13.0-17.0); MCHC 33.6 g/dL (32.0-37.0); MCV 89.1 fL (80.0-97.0); Mean Platelet Volume 12.2 fL (9.5-12.2); Platelet Count 178 X 10*3/uL (140-440); RBC 5.14 X 10*6/uL (4.40-5.60); WBC 7.62 X 10*3/uL (4.50-10.00)
[2020-11-27 04:27] LABS: African American GFR (CKD) 62.6 (60.0-200.0); Anion Gap 13.3 mmol/L (4.00-12.00); BUN/Creat Ratio 19.08 Ratio (12.00-20.00); Blood Urea Nitrogen 22.9 mg/dL (9.0-27.0); Calcium 9.6 mg/dL (8.7-10.3); Carbon Dioxide 21.7 mmol/L (21.6-31.8); Potassium 4.2 mmol/L (3.5-5.5)
== END | disposition home or self-care (01) ==
LOC: LABWHC1 14:04
PROVIDERS: ATTEND Internal Medicine Cardiovascular Disease
DX: R06.02 Shortness of breath (principal)
CPT/HCPCS: 36415; 80048; 83880; 84443; 85027

== ENCOUNTER → 2022-04-29 | Outpatient (CLI) | payer MEDICARE, BC ==
--- NOTE | 2022-04-29 12:54 | CT ---
EXAMINATION TYPE: CT iac wo con CT DLP: 306 mGycm, Automated exposure control for dose reduction was used. DATE OF EXAM: 04/29/2022 12:34 PM INDICATION: Patient age:Male; 86 years old; Reason for study: H91.990 hearing loss; PHH. COMPARISON: CT brain 01/17/2018. TECHNIQUE: Multiple thin axial images were obtained through the temporal bones and internal auditory canals. Additional coronal reformatted images were obtained. No IV contrast was utilized. FINDINGS: Right Temporal Bone: External Ear: The external auditory canal is unremarkable, The tympanic membrane is present and unrem arkable. Middle Ear: The ossicles demonstrate a normal appearance. Prussak's space is clear and the scutum i s intact. There is no evidence of osseous erosion and the tegmen tympani is intact. Inner Ear: Cochlea, vestibule and semi circular canals are unremarkable. No evidence of carotid sha l dehiscence. Two and a half turns of the cochlea are identified. The vestibular aqueduct is not enl arged. Mastoid Air Cells: The mastoid air cells are clear. The tegmen mastoideum is intact. The aditus ad an trum is clear. Internal Auditory Canal: The internal auditory canal is unremarkable. Left Temporal Bone: External Ear: The external auditory canal is unremarkable, The tympanic membrane is present and unrem arkable. Middle Ear: The ossicles demonstrate a normal appearance. Prussak's space is clear and the scutum i s intact. There is no evidence of osseous erosion and the tegmen tympani is intact. Inner Ear: Cochlea, vestibule and semi circular canals are unremarkable. No evidence of carotid sha l dehiscence. Two and a half turns of the cochlea are identified. The vestibular aqueduct is not enl arged. Mastoid Air Cells: The mastoid air cells are clear. The tegmen mastoideum is intact. The aditus ad an trum is clear. Internal Auditory Canal: The internal auditory canal is unremarkable. Mucosal thickening of the ethmoid sinuses. Mild nasal septal spurring to the left. Bilateral aphakia. IMPRESSION: No significant internal auditory canal abnormality identified.
== END | disposition home or self-care (01) ==
LOC: RADCTMAIN 12:13
PROVIDERS: ATTEND Otolaryngology
DX: H93.19 Tinnitus, unspecified ear (principal); H93.90 Unspecified disorder of ear, unspecified ear
CPT/HCPCS: 70480

== ENCOUNTER → 2022-04-29 | Outpatient (CLI) | payer MEDICARE, BC ==
--- NOTE | 2022-04-29 15:59 | US ---
EXAMINATION TYPE: US scrotum with doppler. DATE OF EXAM: 04/29/2022 COMPARISON: NONE CLINICAL HISTORY: 86-year-old male N50.812 LT TESTICULAR PAIN. LEFT testicle pain for 7-8 weeks and h as since gotten better, no known injury TECHNIQUE: Grayscale and color Doppler Duplex imaging performed of the scrotum. FINDINGS: EXAM MEASUREMENTS: TESTICLES: Right Testicle: 3.3 x 2.9 x 2.0cm Left Testicle: 3.3 x 2.9 x 2.1cm EPIDIDYMIS HEAD: Right Epididymis: 0.8 cm - 0.5cm cyst seen Left Epididymis: 1.1 cm Doppler performed to assess for testicular vascularity; good bilateral color flow and waveforms are s een. There is no evidence of testicular torsion. Presence of hydroceles: mild bilateral Presence of varicoceles: no IMPRESSION: No sonographic evidence for testicular torsion or epididymoorchitis. Trace bilateral hydroceles.
== END | disposition home or self-care (01) ==
LOC: RADUSWWP 12:31
PROVIDERS: ATTEND Family Medicine
DX: N43.3 Hydrocele, unspecified (principal)
CPT/HCPCS: 76870; 93975

== ENCOUNTER → 2022-07-06 | Outpatient (CLI) | payer MEDICARE, BC ==
--- NOTE | 2022-07-06 10:16 | CT ---
EXAMINATION TYPE: CT abdomen pelvis wo con DATE OF EXAM: 07/06/2022 COMPARISON: None HISTORY: Calculus of kidney CT DLP: 476.5 mGycm Examination of the solid and hollow viscera is limited given the lack of contrast. FINDINGS: LUNG BASES: No evidence for nodule. No evidence for infiltrate. LIVER/GB: The gallbladder is unremarkable. No space-occupying hepatic lesion. PANCREAS: No pancreatic mass identified. No inflammatory process seen. SPLEEN: No evidence for splenomegaly. No intrasplenic lesions seen. ADRENALS: No adrenal nodules identified. No evidence for thickening. KIDNEYS: Left UPJ calculus noted measuring 1.5 x 1.4 cm without significant hydronephrosis. No additi onal calculi seen within either kidney. No right-sided hydronephrosis. No renal masses present. Urina ry bladder is unremarkable. BOWEL: Appendix has a normal appearance. No evidence of bowel obstruction. No inflammatory process. Lymph nodes: No evidence for adenopathy greater than 1 cm. Abdominal aorta: Atheromatous changes seen. No evidence for aneurysm. Genital organs: Prostate gland enlargement with measurement of 6.4 x 4.5 cm area Other: No significant abnormality. IMPRESSION: 1.Left UPJ calculus noted measuring 1.5 x 1.4 cm without significant hydronephrosis. No additional ca lculi seen within either kidney. 2. Prostate gland enlargement
== END | disposition home or self-care (01) ==
LOC: RADCTMAIN 09:46
PROVIDERS: ATTEND Urology
DX: N20.0 Calculus of kidney (principal); N40.0 Benign prostatic hyperplasia without lower urinary tract symptoms
CPT/HCPCS: 74176

== ENCOUNTER → 2022-07-14 | Outpatient (CLI) | payer MEDICARE, BC ==
--- NOTE | 2022-07-14 09:37 | US ---
EXAMINATION TYPE: US abdomen complete DATE OF EXAM: 07/14/2022 COMPARISON: CT abdomen pelvis 07/06/2022 CLINICAL INDICATION: Male, 86 years old with history of R79.89; Elevated LFT's, known left kidney sto ne TECHNIQUE: Multiple sonographic images of the abdomen are obtained. FINDINGS: EXAM MEASUREMENTS: Liver Length: 17.3 cm Gallbladder Wall: 0.5 cm CBD: 0.4 cm Spleen: 7.5 cm Right Kidney: 10.3 x 3.8 x 4.2 cm Left Kidney: 11.0 x 4.6 x 4.6 cm DIRECTOR OF AUTOMATION NOTES: Pancreas: Obscured by bowel gas Liver: Visualized portions appeared wnl Gallbladder: Lumen clear, wall thickened Evidence for sonographic Calderon's sign: No CBD: wnl Spleen: wnl Right Kidney: Mildly dilated renal pelvis Left Kidney: Mildly dilated renal pelvis, probable renal stone medially= 1.8 cm Upper IVC: wnl Abd Aorta: Proximal portion gassed out, mid and distal portions wnl/ wall calcifications The visualized portions of the liver are unremarkable. The intrahepatic portion of the IVC and mid a nd distal portions of the abdominal aorta are within normal limits with wall calcification. The proxi mal portion is not visualized due to overlying bowel gas. Gallbladder is underdistended with wall thi ckening measuring up to 5 mm. No cholelithiasis or pericholecystic fluid. Per material control specialist, negative s onographic Calderon sign. Common bile duct is unremarkable. The pancreas is obscured by overlying carola l gas. The spleen is unremarkable. Mild dilated bilateral renal pelvises with redemonstration of a 1 .8 cm calculus within the left renal pelvis. No overt hydronephrosis. IMPRESSION: 1. Mildly dilated bilateral renal pelvises with redemonstration of a 1.8 cm calcification within the left renal pelvis. No overt hydronephrosis. 2. Gallbladder wall thickening likely due to underdistention. No cholelithiasis, pericholecystic flu id, or positive sonographic Calderon's sign to suggest acute cholecystitis.
== END | disposition home or self-care (01) ==
LOC: RADUSWWP 08:10
PROVIDERS: ATTEND Family Medicine
DX: N28.89 Other specified disorders of kidney and ureter (principal); R79.89 Other specified abnormal findings of blood chemistry
CPT/HCPCS: 76700